=== PATIENT | female | born 1945 | race Asian ===

== ENCOUNTER 2018-10-18 08:01 | Inpatient (IN) ==
--- NOTE | 2018-10-06 13:22 | Anesthesiology Consultation ---
Date of Service October 06, 2018 Assessment & Plan (1) Encounter for pre-operative examination: Chart Review Chart Review: Acceptable Risk for Surgery and Patient NOT seen in Pre Admission Testing History Surgery Operation Date: 10/18/18 10:10 Proposed Procedures p Laparoscopic Assisted Partial Colon Resection - Yash Peralta MD Height/Weight Height: 5 ft 4 in Weight: 58.967 kg Allergies Allergy/AdvReac Type Severity Reaction Status Date / Time No Known Allergies Allergy Verified 10/06/18 11:40 Medications Home Medications Medication Instructions Recorded Confirmed Last Taken calcium carbonate-vitamin D3 1 tab PO QAM 10/06/18 10/06/18 Unknown [Calcium 500 + D] cholecalciferol (vitamin D3) 5,000 unit PO QAM 10/06/18 10/06/18 Unknown [Vitamin D3] glimepiride 4 mg PO BID 10/06/18 10/06/18 Unknown hydrocodone-acetaminophen 1 tab PO Q6H PRN 10/06/18 10/06/18 Unknown insulin glargine [Lantus U-100 8 unit SUBCUT QAM 10/06/18 10/06/18 Unknown Insulin] insulin glargine [Lantus U-100 18 unit SUBCUT 10/06/18 10/06/18 Unknown Insulin] lisinopril 40 mg PO QAM 10/06/18 10/06/18 Unknown metformin 1,000 mg PO BID 10/06/18 10/06/18 Unknown rosuvastatin [Crestor] 40 mg PO QPM 10/06/18 10/06/18 Unknown Past Medical History Medical History Colon polyp CURRENT ISSUE Diabetes mellitus, type 2 IDDM History of diverticulitis Hyperlipidemia Hypertension Osteoarthritis Rheumatoid arthritis Past Surgical History Surgical History History of esophagogastroduodenoscopy (EGD) Hx of appendectomy Hx of colonoscopy Hx of tubal ligation Social History Smoking Status: Current every day smoker tobacco type: cigarettes Smoking cigarettes per day: 5-10 CIGARETTES/DAY Hx Alcohol Use: Yes Alcohol type: beer, wine and hard liquor alcohol intake frequency: a few times a month Hx Substance Use: No Testing Laboratory Results 09/29/18 WBC 11.61 (surgeon aware) H/H 14.4/42.3 PLATELETS 375 SODIUM 141 POTASSIUM 4.7 CHLORIDE 105 CO2 22 BUN 16 CREATININE 0.7 GLUCOSE 124 Electrocardiogram Date: 09/29/18 SR with PSVC's at 96bpm. Otherwise "normal" EKG
[~2018-10-18 08:01] MED LIST: LR 15ML/HR IV SCH; cefOXitin 2,000 MG in DEXTROSE 5% 50 ML IV SCH
[2018-10-18] MEDS ORDERED: ePHEDrine sulfate 50 MG/ML AMP IV PRN (11:33)
[2018-10-18] MEDS ORDERED: HYDROmorphone INJ 2 MG/ML SYR/VIAL IV PRN (11:33)
[2018-10-18] MEDS ORDERED: PROMETHAZINE HCL 6.25 MG in SODIUM CHLORIDE 0.9% 50 ML IV PRN (11:33)
[2018-10-18] MEDS ORDERED: ONDANSETRON INJ 2 MG/ML 2 ML VIAL IV PRN ×2 (11:33→18:56)
[2018-10-18] MEDS ORDERED: ATROPINE SULFATE 0.1 MG/ML 10ML SYR IV PRN (11:33)
[2018-10-18] MEDS ORDERED: LIDOCAINE HCL 2% 2 ML VIAL/AMP(20MG/ML) INFIL ONE (11:34)
[2018-10-18] MEDS ORDERED: DEXAMETHASONE SOD INJ 4 MG/ML VIAL ONE (11:34)
[2018-10-18] MEDS ORDERED: ROCURONIUM BROMIDE 10 MG/ML 5 ML VIAL ONE (11:34)
[2018-10-18] MEDS ORDERED: MIDAZOLAM HCL 1 MG/ML 2ML VIAL ONE (11:34)
[2018-10-18] MEDS ORDERED: fentaNYL citrate 100 MCG/2 ML VIAL ONE ×6 (11:34→17:55)
[2018-10-18] MEDS ORDERED: PROPOFOL IV EMULSION 10 MG/ML 20 ML VIAL IV ONE (11:34)
[2018-10-18] MEDS ORDERED: ONDANSETRON INJ 2 MG/ML 2 ML VIAL ONE (11:34)
--- NOTE | 2018-10-18 12:02 | History & Physical Bridge Note ---
Date of Service October 18, 2018 History & Physical Bridge Note I have examined the patient, reviewed the History & Physical and in the interval since the performance of the History & Physical I have noted the following changes of clinical significance: no changes noted
[2018-10-18] MEDS ORDERED: BUPIVACAINE 0.5 % 5 MG/1 ML MPF 30ML VIAL ONE (13:03)
[2018-10-18] MEDS ORDERED: PHENYLEPHRINE 100MCG/ML 5ML SYR ONE (17:01)
[2018-10-18] MEDS ORDERED: NEOSTIGMINE METHYLSULFATE 5 MG/5 ML SYR ONE (17:13)
[2018-10-18] MEDS ORDERED: GLYCOPYRROLATE 0.2 MG/ML VIAL ONE (17:13)
--- NOTE | 2018-10-18 17:37 | Post Operative Brief Note ---
Immediate Post Op Note v1 Date of Surgery October 18, 2018 Pre & Post Diagnosis Operation Date: 10/18/18 10:20 Pre-Op Diagnosis: Villous Adenoma Post-Op Diagnosis: Villous Adenoma Procedure Operation Date: 10/18/18 10:20 Actual Procedures p Attempted laparoscopic assisted partial colon resection, lysis of adhesion, right hemicolectomy, proximal transverse colon resection(Not Applicable) - Yash Peralta MD Surgeon Yash Peralta MD Vascular Technologist Sonographer Valerie Miguel PA-C Estimated Blood Loss 350 Findings Consistent with Post-Op Diagnosis Specimens Right and proximal transverse colon Drains Arboleda Catheter (16f arboleda catheter inserted by JURGEN Bro, sterile technique maintained, remains intact per surgeon order) Anesthesia Type General Complications none
[2018-10-18] MEDS: fentaNYL citrate 100 MCG/2 ML VIAL IV PRN ×3 (17:50→18:00)
--- NOTE | 2018-10-18 18:24 | Anesthesiology Progress Note ---
Date of Service October 18, 2018 Anesthesia Post Procedure Vital Signs Vital Signs: Temp Pulse Resp BP Pulse Ox 10/18/18 18:15 101 H 12 141/91 H 99 10/18/18 18:05 102 H 12 125/86 99 10/18/18 17:55 104 H 19 157/75 H 100 10/18/18 17:45 36.5 C 100 H 11 L 135/83 100 10/18/18 08:39 36.6 C 69 18 138/80 99 Pain Intensity Medial Abdomen: Pain Intensity: 4 Transfer of Care Handoff Completed per policy Notes Mental Status: alert / awake / arousable and participated in evaluation Patient Amnestic to Procedure: Yes Nausea / Vomiting: adequately controlled Pain: adequately controlled Airway Patency, RR, SpO2: stable & adequate BP & HR: stable & adequate Hydration State: stable & adequate Anesthetic Complications: no major complications apparent
[2018-10-18] MEDS ORDERED: NALOXONE HCL 0.4 MG/1 ML VIAL/CARP IV PRN (18:56)
[2018-10-18] MEDS ORDERED: HYDROmorphone HCL 0.5MG/ML 50 ML CASSETTE IV PRN (18:56)
[2018-10-18] MEDS: ONDANSETRON INJ 2 MG/ML 2 ML VIAL IV PRN (19:08)
[2018-10-18 19:49] LABS: INR 1.1 (0.9-1.1); Partial Thromboplastin Ratio 0.8; Partial Thromboplastin Time 22.5 Seconds (21.0-31.0); Prothrombin Time 11.4 Seconds (9.0-12.0)
[2018-10-18] MEDS ORDERED: PHARMACY GLYCEMIC MGMT CONSULT PRN (19:51)
[2018-10-18] MEDS ORDERED: ENOXAPARIN INJ 30 MG/0.3 ML SYR SQ SCH (20:00)
[2018-10-18 20:07] LABS: Hematocrit (blood only) 32.3 % (37-47); Hemoglobin 11.1 g/dL (12.0-16.0); Mean Corpuscular Hgb Conc 34.4 g/dL (32-36); Mean Corpuscular Volume 84.8 fL (80-100); Mean Platelet Volume 8.9 fL (7.4-10.4); Platelet Count 507 K/uL (130-400); RDW Coefficient of Variation 13.2 % (11.5-14.5); RDW Standard Deviation 40.5 fL (36.4-46.3); Red Blood Count 3.81 M/uL (4.2-5.4); White Blood Count 29.56 K/uL (4.8-10.8)
[2018-10-18] MEDS: SODIUM CHLORIDE 0.9% 1000ML 1,000 ML IV SCH ×2 (20:14→20:28)
[2018-10-18] MEDS ORDERED: DEXTROSE 50% 50 ML SYRINGE IV PRN (20:15)
[2018-10-18] MEDS ORDERED: GLUCAGON FOR INJ 1 MG VIAL IM PRN (20:15)
[2018-10-18] MEDS ORDERED: GLUCOSE 40% GEL 15 GM TUBE PO PRN (20:15)
[2018-10-18] MEDS ORDERED: GLUCOSE 10 TABS/TUBE PO PRN (20:15)
[2018-10-18] MEDS ORDERED: CARBOHYDRATES FOR HYPOGLYCEMIA PO PRN (20:15)
[2018-10-18 20:17] LABS: BUN Creatinine Ratio 18.3 (10-20); Calcium 8.4 mg/dl (8.5-10.1); Creatinine Clr Calc Pharmacy 44.4 ml/min; Est GFR (Non-African American) 56.9; Potassium 3.8 mmol/L (3.5-5.1)
[2018-10-18 20:18] LABS: Creatinine Clr Calc Pharmacy 43.1 ml/min; Est GFR (African American) 63.6; Est GFR (Non-African American) 54.9
[2018-10-18] MEDS: ALUMINUM/MAGNESIUM SUSP 30 ML UDC NG SCH (20:19)
[2018-10-18] MEDS ORDERED: INSULIN GLARGINE SOLOSTAR 100 UNITS/ML 3 ML PEN SC SCH (21:00)
[2018-10-19] MEDS: INSULIN ASPART 100 UNITS/ML 3 ML PEN SC SCH ×4 (00:05→18:42)
[2018-10-19] MEDS: ALUMINUM/MAGNESIUM SUSP 30 ML UDC NG SCH ×4 (00:09→18:43)
--- NOTE | 2018-10-19 01:44 | Operative Report ---
DATE OF OPERATION: 10/18/2018 PREOPERATIVE DIAGNOSIS: Tubulovillous adenoma of the colon. POSTOPERATIVE DIAGNOSIS: Tubulovillous adenoma of the hepatic flexure of the colon. PROCEDURE: Laparoscopic assisted right and proximal transverse colectomy. SURGEON: Yash Peralta MD CAD DRAFTSMAN: Valerie Miguel PA-C FINDINGS: Area of the adenoma was inked and this was found to be at the hepatic flexure. The remainder of the colon appeared normal. Initially, it was felt that it may have been at the splenic flexure and so the colon was followed beginning at the mid transverse colon laterally and then around the splenic flexure and into the descending colon and there was no inking there. There was ink; however, that was obvious upon entering the abdomen in the area of the hepatic flexure. The patient had had a previous appendectomy. The cecum was densely adherent to the lateral abdominal wall in the right lower quadrant was the terminal ileum which was densely adherent there and going inferiorly towards the pelvis. Laparoscopic dissection was quite difficult in visualization of the wall of the bowel was very difficult and so after mobilizing the distal ascending colon and transverse colon, I had to make an incision a little bit bigger than normal in order to manually divide the adhesions of the cecum and terminal ileum away from the lateral abdominal and pelvic wall. The transverse colon was also redundant and the omentum was also adherent in the right lower quadrant which tethered the redundant transverse colon to the site over the cecum. This required significant dissection in order to identify that. TECHNIQUE: The patient was given a general anesthetic and the area was prepped and draped in usual sterile fashion. A transverse incision was made below the umbilicus through her previous scar, carried down to the subcutaneous tissue to the fascia which was grasped with 2 Kay clamps and incised between. The peritoneum was identified, incised and introducer was placed bluntly. The abdomen was insufflated to a pressure of 15 mmHg and the camera was passed through that introducer. The inking in the right upper quadrant was easily identified so two 5 mm introducers were placed on the left side of the abdomen under direct vision. Eventually, a 5 mm introducer was placed under the right side of the abdomen in the lower quadrant as well. I was able to see the inking of the hepatic flexure and I could see the transverse colon in the left side of the abdomen and I followed that out towards the splenic flexure and then I looked at the descending colon. There was no ink on that side so then I followed the transverse colon towards the right and noted that it was extending down towards the right lower quadrant. It was clear that the omentum was thickened and adherent to the lateral and inferior abdominal wall. These adhesions had to be divided so that I could then retract the omentum up into the upper abdomen and identify the mid portion of the transverse colon. I then began at the mid portion of the transverse colon and the omentum and established the plane along the superior aspect of the mesentery working from medial to lateral. I then began to work around the hepatic flexure and identified the inked area and placed downward traction and divided the flimsy mesenteric attachments and the white line of Toldt and worked inferiorly; however, when I got into the right lower quadrant, the cecum was densely adherent to the lateral abdominal wall. I was able to establish a plane and then I was able to rotate that medially, but I was not able to get behind the cecum. I then tried to come from the lateral and I tried to identify the terminal ileum and when I did it, it was densely adherent to the lateral pelvic side wall that extended up over into the lateral abdominal wall. I divided some of those attachments, but it became difficult to tell where the bowel wall and the peritoneum ended since it was so thickened. At that point, I decided to complete the procedure with a more open technique. The gas was allowed to escape and a vertical midline incision was made from above the umbilicus and worked down around the umbilicus to include the previous midline incision. The layers were opened in the midline as was the fascia and the peritoneum was opened and the layers were opened along the length of the skin incision. I then was able to grasp the ascending colon and retracted medially. I was able to use my hand with some blunt dissection, but also required some cautery dissection to separate the thickened adhesions of the cecum. Once I rolled back medially, I then was able to get behind that and behind the dense attachments of the terminal ileum on the lateral abdominal wall, lateral pelvic wall and divide those and then I was able to reflect that medially and separate the attachments of the mesentery and had completely freed. That allowed the terminal ileum to come into the upper abdomen and I made sure that I could perform an anastomosis without tension. The site of the terminal ileum was chosen for division. The mesentery was away from the wall of the terminal ileum there and the terminal ileum was divided. I then could feel the middle colic artery. I then was able to separate the mesentery away from the colon wall just to the right of the middle colic artery. This was a good distance away from the inked area to assure for a good margin should there have been carcinoma within the polyp. I then divided the mesentery working from the terminal ileum side up and divided that using cautery and using a clamp-clamp, divide and ligate technique for the larger vessels including the right colic. These were ligated with a 2-0 Vicryl tie and a 2-0 suture ligature. When the mesentery was completely divided, the specimen was passed off. The small bowel brought at the level of the transverse colon without tension. The mesenteric opening was closed partially using a running 2-0 Vicryl. The anastomosis was then performed making sure not to twist the mesentery of the small bowel. The small bowel wall was approximated to the wall of the colon using 3-0 interrupted stay sutures The antimesenteric border of each staple line was removed and the limb of the stapler was passed into each limb and the anastomosis was performed. There was no bleeding from the staple line. The common opening was closed with a TA stapler being sure to incorporate the serosa around the entire circumference. Another 3-0 stitch was placed near the crotch of the anastomosis distally. Additional stay sutures were used to reinforce the staple line anteriorly. The remainder of the opening in the mesentery was closed with an additional running 2-0 Vicryl. The anastomosis was placed back into its anatomic position. The omentum was brought down over it. There was an extension of the omentum, but I was concerned about the vascularity and so this was removed using a clamp-clamp, divide and ligate technique ligating with 2-0 silk sutures. The omentum was brought over the anastomosis and anterior wall of the small bowel. Prior to doing that, the abdomen was irrigated and irrigation was removed and the areas of dissection were inspected for bleeding and none was seen. The fascia was closed with a running #1 PDS. The skin was closed with hoa. Estimated blood loss 350 mL. Sponge, needle and instrument counts were correct prior to closure. The patient tolerated the surgical procedure without complication and was transferred to recovery. I attest to the content of the Intraoperative Record and any orders documented therein. Any exception s are noted below.
[2018-10-19] MEDS: SODIUM CHLORIDE 0.9% 1000ML 1,000 ML IV SCH ×4 (03:51→20:05)
[2018-10-19 07:33] LABS: Basophils # (auto) 0.01 K/uL (0-0.2); Hematocrit (blood only) 29.4 % (37-47); Immature Granulocytes % (auto) 0.4 %; Lymphocytes # (auto) 1.32 K/uL (1.2-3.4); Lymphocytes % (auto) 5.8 %; Mean Platelet Volume 8.6 fL (7.4-10.4); Monocytes # (auto) 1.67 K/uL (0.11-0.59); Monocytes % (auto) 7.3 %; Neutrophils # (auto) 19.79 K/uL (1.4-6.5); Neutrophils % (auto) 86.5 %; Platelet Count 430 K/uL (130-400); RDW Coefficient of Variation 13.2 % (11.5-14.5); RDW Standard Deviation 40.2 fL (36.4-46.3); Red Blood Count 3.46 M/uL (4.2-5.4); White Blood Count 22.89 K/uL (4.8-10.8)
[2018-10-19 08:06] LABS: BUN Creatinine Ratio 27.9 (10-20); Calcium 8.4 mg/dl (8.5-10.1); Creatinine Clr Calc Pharmacy 49.3 ml/min; Est GFR (Non-African American) 64.7
--- NOTE | 2018-10-19 08:21 | Surgery Progress Note ---
Date of Service October 19, 2018 Assessment & Plan (1) Tubulovillous adenoma of colon: Postoperative day #1 status post resection of right colon and proximal transverse colon Stable Can discontinue NG tube Would continue with ice chips for now Encouraged ambulation Present on Admission?: Yes Subjective Postoperative day #1, status post resection of right colon and proximal transverse colon Analgesia is effective Denies nausea and vomiting Has already been out of bed No flatus or bowel movement as yet Physical Exam Gastrointestinal (Abdomen): Inspection/Auscultation: + abdominal surgical incision (Dressings are clean and dry) and + hypoactive bowel sounds (But prese nt); abdomen not distended Percussion/Palpation: + abdomen tender (Incisional only) and abdomen soft Results & Data Vital Signs (Past 12 Hours) Vital Signs Temp Pulse Pulse Resp BP BP Pulse Ox 10/19/18 07:06 37 C 91 H 16 137/72 94 10/19/18 03:17 36.8 C 92 H 16 127/76 94 10/19/18 00:50 36.6 C 93 H 16 117/74 94 10/18/18 23:48 36.4 C L 100 H 16 117/76 96 10/18/18 22:50 36.7 C 100 H 14 115/72 93 10/18/18 21:54 36.7 C 100 H 14 114/77 94 10/18/18 21:28 36.8 C 100 H 16 119/78 95 10/18/18 20:50 36.9 C 104 H 16 114/77 95 10/18/18 20:30 37.0 C 104 H 17 114/78 94 Laboratory Results 10/19/18 10/19/18 10/19/18 Range/Units 07:15 07:15 07:15 WBC 22.89 H (4.8-10.8) K/uL RBC 3.46 L (4.2-5.4) M/uL Hgb 10.0 L (12.0-16.0) g/dL Hct 29.4 L (37-47) % MCV 85.0 (80-100) fL MCH 28.9 (25-34) pg MCHC 34.0 (32-36) g/dL RDW Std Deviation 40.2 (36.4-46.3) fL RDW Coeff of Yoav 13.2 (11.5-14.5) % Plt Count 430 H (130-400) K/uL MPV 8.6 (7.4-10.4) fL Immature Gran % (Auto) 0.4 % Neut % (Auto) 86.5 % Lymph % (Auto) 5.8 % Jessamine % (Auto) 7.3 % Eos % (Auto) 0.0 % Baso % (Auto) 0.0 % Immature Gran # (Auto) 0.10 H (0.00-0.02) K/uL Neut # (Auto) 19.79 H (1.4-6.5) K/uL Lymph # (Auto) 1.32 (1.2-3.4) K/uL Jessamine # (Auto) 1.67 H (0.11-0.59) K/uL Eos # (Auto) 0.00 (0-0.5) K/uL Baso # (Auto) 0.01 (0-0.2) K/uL PT (9.0-12.0) Seconds INR (0.9-1.1) APTT (21.0-31.0) Seconds PTT Ratio Sodium 137 (136-145) mmol/L Potassium 4.0 (3.5-5.1) mmol/L Chloride 107 (98-107) mmol/L Carbon Dioxide 19 L (21-32) mmol/L Anion Gap 11.0 (3-11) BUN 25 H (7-18) mg/dl Creatinine 0.89 (0.6-1.2) mg/dl Est Cr Clr Drug Dosing 49.3 ml/min Est GFR ( Amer) 75.0 Est GFR (Non-Af Amer) 64.7 BUN/Creatinine Ratio 27.9 H (10-20) Glucose 225 H (70-99) mg/dl POC Glucose (70-99) Estimat Average Glucose Pending Hemoglobin A1c Pending Calcium 8.4 L (8.5-10.1) mg/dl Blood Type Antibody Screen 10/19/18 10/18/18 10/18/18 Range/Units 05:33 23:53 21:59 WBC (4.8-10.8) K/uL RBC (4.2-5.4) M/uL Hgb (12.0-16.0) g/dL Hct (37-47) % MCV (80-100) fL MCH (25-34) pg MCHC (32-36) g/dL RDW Std Deviation (36.4-46.3) fL RDW Coeff of Yoav (11.5-14.5) % Plt Count (130-400) K/uL MPV (7.4-10.4) fL Immature Gran % (Auto) % Neut % (Auto) % Lymph % (Auto) % Jessamine % (Auto) % Eos % (Auto) % Baso % (Auto) % Immature Gran # (Auto) (0.00-0.02) K/uL Neut # (Auto) (1.4-6.5) K/uL Lymph # (Auto) (1.2-3.4) K/uL Jessamine # (Auto) (0.11-0.59) K/uL Eos # (Auto) (0-0.5) K/uL Baso # (Auto) (0-0.2) K/uL PT (9.0-12.0) Seconds INR (0.9-1.1) APTT (21.0-31.0) Seconds PTT Ratio Sodium (136-145) mmol/L Potassium (3.5-5.1) mmol/L Chloride (98-107) mmol/L Carbon Dioxide (21-32) mmol/L Anion Gap (3-11) BUN (7-18) mg/dl Creatinine (0.6-1.2) mg/dl Est Cr Clr Drug Dosing ml/min Est GFR ( Amer) Est GFR (Non-Af Amer) BUN/Creatinine Ratio (10-20) Glucose (70-99) mg/dl POC Glucose 235 H 233 H 207 H (70-99) Estimat Average Glucose Hemoglobin A1c Calcium (8.5-10.1) mg/dl Blood Type Antibody Screen 10/18/18 10/18/18 10/18/18 Range/Units 19:24 19:24 19:24 WBC 29.56 H (4.8-10.8) K/uL RBC 3.81 L (4.2-5.4) M/uL Hgb 11.1 L (12.0-16.0) g/dL Hct 32.3 L (37-47) % MCV 84.8 (80-100) fL MCH 29.1 (25-34) pg MCHC 34.4 (32-36) g/dL RDW Std Deviation 40.5 (36.4-46.3) fL RDW Coeff of Yoav 13.2 (11.5-14.5) % Plt Count 507 H (130-400) K/uL MPV 8.9 (7.4-10.4) fL Immature Gran % (Auto) % Neut % (Auto) % Lymph % (Auto) % Jessamine % (Auto) % Eos % (Auto) % Baso % (Auto) % Immature Gran # (Auto) (0.00-0.02) K/uL Neut # (Auto) (1.4-6.5) K/uL Lymph # (Auto) (1.2-3.4) K/uL Jessamine # (Auto) (0.11-0.59) K/uL Eos # (Auto) (0-0.5) K/uL Baso # (Auto) (0-0.2) K/uL PT 11.4 (9.0-12.0) Seconds INR 1.1 (0.9-1.1) APTT 22.5 (21.0-31.0) Seconds PTT Ratio 0.8 Sodium (136-145) mmol/L Potassium (3.5-5.1) mmol/L Chloride (98-107) mmol/L Carbon Dioxide (21-32) mmol/L Anion Gap (3-11) BUN (7-18) mg/dl Creatinine 1.02 (0.6-1.2) mg/dl Est Cr Clr Drug Dosing 43.1 ml/min Est GFR ( Amer) 63.6 Est GFR (Non-Af Amer) 54.9 BUN/Creatinine Ratio (10-20) Glucose (70-99) mg/dl POC Glucose (70-99) Estimat Average Glucose Hemoglobin A1c Calcium (8.5-10.1) mg/dl Blood Type Antibody Screen 10/18/18 10/18/18 10/18/18 Range/Units 19:21 17:47 13:59 WBC (4.8-10.8) K/uL RBC (4.2-5.4) M/uL Hgb (12.0-16.0) g/dL Hct (37-47) % MCV (80-100) fL MCH (25-34) pg MCHC (32-36) g/dL RDW Std Deviation (36.4-46.3) fL RDW Coeff of Yoav (11.5-14.5) % Plt Count (130-400) K/uL MPV (7.4-10.4) fL Immature Gran % (Auto) % Neut % (Auto) % Lymph % (Auto) % Jessamine % (Auto) % Eos % (Auto) % Baso % (Auto) % Immature Gran # (Auto) (0.00-0.02) K/uL Neut # (Auto) (1.4-6.5) K/uL Lymph # (Auto) (1.2-3.4) K/uL Jessamine # (Auto) (0.11-0.59) K/uL Eos # (Auto) (0-0.5) K/uL Baso # (Auto) (0-0.2) K/uL PT (9.0-12.0) Seconds INR (0.9-1.1) APTT (21.0-31.0) Seconds PTT Ratio Sodium 137 (136-145) mmol/L Potassium 3.8 (3.5-5.1) mmol/L Chloride 105 (98-107) mmol/L Carbon Dioxide 19 L (21-32) mmol/L Anion Gap 13.0 H (3-11) BUN 18 (7-18) mg/dl Creatinine 0.99 (0.6-1.2) mg/dl Est Cr Clr Drug Dosing 44.4 ml/min Est GFR ( Amer) 66.0 Est GFR (Non-Af Amer) 56.9 BUN/Creatinine Ratio 18.3 (10-20) Glucose 162 H (70-99) mg/dl POC Glucose 144 H 79 (70-99) Estimat Average Glucose Hemoglobin A1c Calcium 8.4 L (8.5-10.1) mg/dl Blood Type Antibody Screen 10/18/18 10/18/18 Range/Units 09:02 08:40 WBC (4.8-10.8) K/uL RBC (4.2-5.4) M/uL Hgb (12.0-16.0) g/dL Hct (37-47) % MCV (80-100) fL MCH (25-34) pg MCHC (32-36) g/dL RDW Std Deviation (36.4-46.3) fL RDW Coeff of Yoav (11.5-14.5) % Plt Count (130-400) K/uL MPV (7.4-10.4) fL Immature Gran % (Auto) % Neut % (Auto) % Lymph % (Auto) % Jessamine % (Auto) % Eos % (Auto) % Baso % (Auto) % Immature Gran # (Auto) (0.00-0.02) K/uL Neut # (Auto) (1.4-6.5) K/uL Lymph # (Auto) (1.2-3.4) K/uL Jessamine # (Auto) (0.11-0.59) K/uL Eos # (Auto) (0-0.5) K/uL Baso # (Auto) (0-0.2) K/uL PT (9.0-12.0) Seconds INR (0.9-1.1) APTT (21.0-31.0) Seconds PTT Ratio Sodium (136-145) mmol/L Potassium (3.5-5.1) mmol/L Chloride (98-107) mmol/L Carbon Dioxide (21-32) mmol/L Anion Gap (3-11) BUN (7-18) mg/dl Creatinine (0.6-1.2) mg/dl Est Cr Clr Drug Dosing ml/min Est GFR ( Amer) Est GFR (Non-Af Amer) BUN/Creatinine Ratio (10-20) Glucose (70-99) mg/dl POC Glucose 79 (70-99) Estimat Average Glucose Hemoglobin A1c Calcium (8.5-10.1) mg/dl Blood Type A Positive Antibody Screen NEGATIVE
[2018-10-19] MEDS ORDERED: INSULIN GLARGINE SOLOSTAR 100 UNITS/ML 3 ML PEN SC ONE ×2 (09:00)
--- NOTE | 2018-10-19 09:26 | Anesthesiology Progress Note ---
Date of Service October 19, 2018 Anesthesia Post Procedure Vital Signs Vital Signs: Temp Pulse Pulse Resp BP BP Pulse Ox 10/19/18 07:06 37 C 91 H 16 137/72 94 10/19/18 03:17 36.8 C 92 H 16 127/76 94 10/19/18 00:50 36.6 C 93 H 16 117/74 94 10/18/18 23:48 36.4 C L 100 H 16 117/76 96 10/18/18 22:50 36.7 C 100 H 14 115/72 93 10/18/18 21:54 36.7 C 100 H 14 114/77 94 10/18/18 21:28 36.8 C 100 H 16 119/78 95 10/18/18 20:50 36.9 C 104 H 16 114/77 95 10/18/18 20:30 37.0 C 104 H 17 114/78 94 10/18/18 19:50 36.8 C 107 H 16 101/70 95 10/18/18 19:20 36.9 C 105 H 16 128/78 95 10/18/18 18:58 36.7 C 106 H 17 148/88 H 94 10/18/18 18:45 36.6 C 108 H 16 142/84 H 96 10/18/18 18:35 36.6 C 108 H 16 123/84 96 10/18/18 18:25 110 H 12 143/91 H 99 10/18/18 18:15 101 H 12 141/91 H 99 10/18/18 18:05 102 H 12 125/86 99 10/18/18 17:55 104 H 19 157/75 H 100 10/18/18 17:45 36.5 C 100 H 11 L 135/83 100 Pain Intensity Medial Abdomen: Pain Intensity: 3 Notes Mental Status: alert / awake / arousable Patient Amnestic to Procedure: Yes Nausea / Vomiting: adequately controlled Pain: adequately controlled Airway Patency, RR, SpO2: stable & adequate BP & HR: stable & adequate Hydration State: stable & adequate Anesthetic Complications: no major complications apparent
[2018-10-19 09:47] LABS: Estimated Average Glucose 171 mg/dl; Hemoglobin A1C 7.6 % (4.5-5.6)
--- NOTE | 2018-10-19 10:43 | Pharmacy Report ---
Glycemic Control Consultation - Date of Service October 19, 2018 - Scope Scope: Glycemic Pharmacist consulted by Dr Peralta on 10-18 for glycemic control and to write orders per [facility] inpatient glycemic control protocol - Objective Weight: 56.699 kg Accuchecks BSG (last 24hrs): 10/18/18 10/18/18 10/18/18 13:59 17:47 19:21 Glucose 162 H POC Glucose 79 144 H 10/18/18 10/18/18 10/19/18 21:59 23:53 05:33 Glucose POC Glucose 207 H 233 H 235 H 10/19/18 07:15 Glucose 225 H POC Glucose Laboratory Data (last 24hrs): 10/18/18 10/18/18 10/19/18 19:21 19:24 07:15 Potassium 3.8 4.0 Carbon Dioxide 19 L 19 L Anion Gap 13.0 H 11.0 Creatinine 0.99 1.02 0.89 Est Cr Clr Drug Dosing 44.4 43.1 49.3 HbA1c: Hemoglobin A1c 7.6 % (4.5-5.6) H 10/19/18 07:15 - Recent Pertinent Medications Outpatient Anti-diabetic Regimen: * Lantus 8 units QAM, Lantus 18 units QPM, metformin 1000 mg bid, glimepiride 4 mg bid * A1c = 7.6 % [10/19/18] Risk Factors for Insulin Resistance: * Steroids: received dex 4 mg iv 10/18 in OR * Recent Surgery: POD 1 * Diet: NPO/ice chips - Assessment & Plan Assessment & Plan: ASSESSMENT: * 73 year old female now s/p colon resection. Today POD 1 - continues NPO/ice chips * Patient received total of ~18 units of insulin yesterday, of which 14 units were basal ( only ~50% of home dose of basal given) * Fasting BSG this morning elevated at 235 mg/dL - likely related to steroids/insufficient basal coverage day prior * Will increase to Lantus 12 units this am (which is an additional 4 units more from home dose to make up basal dosing from yesterday and to help cover steroids). Will add Lantus scale on for this evening based upon BSG * Patient on Q6 hr checks / already covered with Novolog this morning, however will further tighten for lunchtime check PLAN FOR INPATIENT GLYCEMIC CONTROL: * Pt is maintained on oral antidiabetic agents as an outpatient * Oral agents are not recommended for inpatient use d/t drug interactions, changing PO intake, and difficulty titrating for acute hyper/hypoglycemia. ADA recommends re-initiating outpatient oral agents 1-2 days prior to discharge if/when appropriate if they were held on admission. * Will hold oral agents for admission and utilize SQ basal bolus insulin regimen which is the recommended regimen for inpatient glycemic control. * Will initiate weight based insulin dosing for insulin buzz patient and titrate based on BSG trends. * Basal insulin * Lantus 12 units this morning * Lantus HS per scale -For BSG <140 mg/dL - give 8 units -For BSG 140-200 mg/dL - give 10 units -For BSG >200 mg/dL - give 12 units * Bolus insulin * NovoLog per scale ACHS or Q6hrs while NPO * Goal Range: Low 110 mg/dL - High 140 mg/dL * Correction Factor: 20 mg/dL/unit * Nutritional / Prandial insulin per carb ratio of 1 unit per 12 grams CHO consumed * Please note that the plan above was derived based on current level of insulin resistance and hospital stress. These recommendations are appropriate for inpatient admission only. Plan of care upon discharge will need to be reassessed to avoid potential outpatient hypo/hyperglycemia. Thank you.
[2018-10-19] MEDS ORDERED: INSULIN GLARGINE SOLOSTAR 100 UNITS/ML 3 ML PEN SC SCH ×2 (18:00)
[2018-10-19] MEDS ORDERED: ENOXAPARIN INJ 30 MG/0.3 ML SYR SQ SCH (18:15)
[2018-10-20] MEDS ORDERED: INSULIN ASPART 100 UNITS/ML 3 ML PEN SC SCH (00:05)
[2018-10-20] MEDS: ALUMINUM/MAGNESIUM SUSP 30 ML UDC NG SCH ×3 (00:20→12:57)
[2018-10-20] MEDS: INSULIN ASPART 100 UNITS/ML 3 ML PEN SC SCH ×5 (01:06→21:31)
--- NOTE | 2018-10-20 01:29 | History and Physical Report ---
DATE OF ADMISSION: 10/20/2018 CHIEF COMPLAINT: Status post right and proximal transverse colectomy on 10/18/2018. We are consulted for low urine output. HISTORY OF PRESENT ILLNESS: This is a 73-year-old female with past medical history significant for diabetes, hyperlipidemia, hypertension, gastroesophageal reflux disease, chronic pain, rheumatoid arthritis, recently colonoscopy showed tubulovillous adenoma of the hepatic flexure, status post elective laparoscopic right colon and transverse colectomy, tolerated the procedure okay. The patient has had a nasogastric tube, eventually was taken out and also had Faust that was taken out. We are called because she had only 200 mL of urine output. On bladder scanning, she has about 380 mL of urine in the bladder. Denies any abdominal pain. No nausea. No chest pain. No shortness of breath. No cough. No feeling of hot or cold. She has some blurry vision, afebrile, moving her extremities, not passing gas yet, has some soreness in the surgical site. ALLERGIES: No known drug allergies. PAST MEDICAL HISTORY: As mentioned above. PAST SURGICAL HISTORY: Status post right colectomy and transverse colectomy, colonoscopy, ligation of oviduct and appendectomy. MEDICATIONS: The patient is on Cymbalta 30 mg, calcium with vitamin D daily, glimepiride 4 mg p.o. b.i.d., hydrocodone/acetaminophen one tablet p.o. q. 6 hours p.r.n., Lantus 18 units at bedtime and 8 units in a.m., lisinopril 20 mg p.o. daily, metformin 1000 mg p.o. b.i.d. and Crestor 40 mg p.o. daily. FAMILY HISTORY: On file. SOCIAL HISTORY: Smokes half pack a day. Alcohol occasional. No drug use. . REVIEW OF SYMPTOMS: As per HPI. Rest of review of systems negative. PHYSICAL EXAMINATION: GENERAL: The patient is of moderate build, not in acute distress. VITAL SIGNS: Temperature 36.8, pulse 77, respiratory rate 18, blood pressure 132/71 and oxygen 96% on room air. HEENT: No pallor. No icterus. NECK: No JVD. No neck masses. No carotid bruits. CARDIOVASCULAR: S1, S2 heard. Regular rate and rhythm. No murmur. No gallop. RESPIRATORY SYSTEM: Normal AP diameter. No accessory muscle use. No wheezing. No crackles. ABDOMEN: Surgical dressing clean. No drainage seen. Very diminished bowel sounds. No distention. CENTRAL NERVOUS SYSTEM: Nonfocal. EXTREMITIES: No edema. No erythema. LABORATORY DATA: Yesterday's WBC 22, hemoglobin 10, hematocrit 29.4 and platelets 430. Sodium 137, potassium 4, chloride 107, bicarbonate 19, BUN 25, creatinine 0.8, serum glucose 225, calcium 8.7 and HbA1c 7.6. ASSESSMENT AND PLAN: This is a 73-year-old female who was found to have tubulovillous adenoma on a recent colonoscopy and status post right and transverse colectomy. 1. Tubulovillous adenoma, status post laparoscopic assisted right and proximal transverse colectomy, tolerated procedure okay, currently n.p.o. and on I.V. fluids. 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 Further management as per surgery. 2. Urinary retention, about 380 mL of fluid in the bladder, mostly postoperative, we will straight catheterize for now. If continues to have retention retention, we will place back on Faust catheter. 3. Diabetes. At home on metformin, glyburide and Lantus 8 units in a.m. and 18 units at bedtime, holding glimepiride and metformin, currently n.p.o. on ISS. Pharmacy consulted. 4. History of hypertension, If the blood pressure climbs up, we will place on I.V. hydralazine and restart lisinopril whenever able to take p.o. 5. Hyperlipidemia, restart Crestor whenever able to take p.o. 6. Deep venous thrombosis prophylaxis and disposition as per surgery. [facility]
[2018-10-20] MEDS: SODIUM CHLORIDE 0.9% 1000ML 1,000 ML IV SCH ×3 (03:56→17:23)
[2018-10-20] MEDS: ONDANSETRON INJ 2 MG/ML 2 ML VIAL IV PRN (05:39)
[2018-10-20 06:18] LABS: Basophils # (auto) 0.01 K/uL (0-0.2); Basophils % (auto) 0.1 %; Eosinophils # (auto) 0.01 K/uL (0-0.5); Eosinophils % (auto) 0.1 %; Hematocrit (blood only) 21.6 % (37-47); Hemoglobin 7.5 g/dL (12.0-16.0); Immature Granulocytes # (auto) 0.04 K/uL (0.00-0.02); Immature Granulocytes % (auto) 0.3 %; Lymphocytes # (auto) 1.72 K/uL (1.2-3.4); Lymphocytes % (auto) 12.3 %; Mean Corpuscular Hgb Conc 34.7 g/dL (32-36); Monocytes # (auto) 1.15 K/uL (0.11-0.59); Monocytes % (auto) 8.2 %; Neutrophils # (auto) 11.05 K/uL (1.4-6.5); Platelet Count 270 K/uL (130-400); RDW Coefficient of Variation 13.3 % (11.5-14.5); RDW Standard Deviation 40.4 fL (36.4-46.3); Red Blood Count 2.57 M/uL (4.2-5.4); White Blood Count 13.98 K/uL (4.8-10.8)
[2018-10-20 06:47] LABS: Basophilic Stippling 1+
[2018-10-20 06:54] LABS: BUN Creatinine Ratio 20.8 (10-20); Calcium 8.2 mg/dl (8.5-10.1); Creatinine Clr Calc Pharmacy 78.4 ml/min; Est GFR (Non-African American) 93.2; Potassium 3.7 mmol/L (3.5-5.1)
--- NOTE | 2018-10-20 07:04 | Surgery Progress Note ---
Date of Service October 20, 2018 Assessment & Plan (1) Tubulovillous adenoma of colon: Postoperative day #1 status post resection of right and proximal transverse colon H&H noted, will repeat this afternoon, will discontinue Lovenox Encourage patient to wear compression stockings Increase ambulation today Continue DIABETES MANAGER for now Continue clear liquids Present on Admission?: Yes Subjective Postoperative day #2 status post resection of right and proximal transverse colon Pain is a little bit less today Ambulated yesterday No flatus or bowel movement as yet Had mild nausea this morning but resolved with Zofran Tolerated sips of clear liquids Physical Exam Gastrointestinal (Abdomen): Inspection/Auscultation: + abdominal surgical incision (Clean, dry and intact); abdomen not distended Percussion/Palpation: + abdomen tender (Right side only) and abdomen soft Results & Data Vital Signs (Past 12 Hours) Vital Signs Temp Pulse Resp BP BP Pulse Ox 10/20/18 03:45 36.8 C 81 16 112/70 90 10/20/18 00:40 36.9 C 88 16 113/68 94 Laboratory Results 10/20/18 10/20/18 10/20/18 Range/Units 05:57 05:57 05:44 WBC 13.98 H (4.8-10.8) K/uL RBC 2.57 L (4.2-5.4) M/uL Hgb 7.5 L (12.0-16.0) g/dL Hct 21.6 L (37-47) % MCV 84.0 (80-100) fL MCH 29.2 (25-34) pg MCHC 34.7 (32-36) g/dL RDW Std Deviation 40.4 (36.4-46.3) fL RDW Coeff of Yoav 13.3 (11.5-14.5) % Plt Count 270 (130-400) K/uL MPV 8.0 (7.4-10.4) fL Immature Gran % (Auto) 0.3 % Neut % (Auto) 79.0 % Lymph % (Auto) 12.3 % Fountain % (Auto) 8.2 % Eos % (Auto) 0.1 % Baso % (Auto) 0.1 % Immature Gran # (Auto) 0.04 H (0.00-0.02) K/uL Neut # (Auto) 11.05 H (1.4-6.5) K/uL Lymph # (Auto) 1.72 (1.2-3.4) K/uL Fountain # (Auto) 1.15 H (0.11-0.59) K/uL Eos # (Auto) 0.01 (0-0.5) K/uL Baso # (Auto) 0.01 (0-0.2) K/uL Basophilic Stippling 1+ Sodium 136 (136-145) mmol/L Potassium 3.7 (3.5-5.1) mmol/L Chloride 106 (98-107) mmol/L Carbon Dioxide 25 (21-32) mmol/L Anion Gap 5.0 (3-11) BUN 12 D (7-18) mg/dl Creatinine 0.56 L D (0.6-1.2) mg/dl Est Cr Clr Drug Dosing 78.4 ml/min Est GFR ( Amer) 108.0 Est GFR (Non-Af Amer) 93.2 BUN/Creatinine Ratio 20.8 H (10-20) Glucose 122 H (70-99) mg/dl POC Glucose 133 H (70-99) Estimat Average Glucose mg/dl Hemoglobin A1c (4.5-5.6) % Calcium 8.2 L (8.5-10.1) mg/dl 10/19/18 10/19/18 10/19/18 Range/Units 23:43 18:37 11:59 WBC (4.8-10.8) K/uL RBC (4.2-5.4) M/uL Hgb (12.0-16.0) g/dL Hct (37-47) % MCV (80-100) fL MCH (25-34) pg MCHC (32-36) g/dL RDW Std Deviation (36.4-46.3) fL RDW Coeff of Yoav (11.5-14.5) % Plt Count (130-400) K/uL MPV (7.4-10.4) fL Immature Gran % (Auto) % Neut % (Auto) % Lymph % (Auto) % Fountain % (Auto) % Eos % (Auto) % Baso % (Auto) % Immature Gran # (Auto) (0.00-0.02) K/uL Neut # (Auto) (1.4-6.5) K/uL Lymph # (Auto) (1.2-3.4) K/uL Fountain # (Auto) (0.11-0.59) K/uL Eos # (Auto) (0-0.5) K/uL Baso # (Auto) (0-0.2) K/uL Basophilic Stippling Sodium (136-145) mmol/L Potassium (3.5-5.1) mmol/L Chloride (98-107) mmol/L Carbon Dioxide (21-32) mmol/L Anion Gap (3-11) BUN (7-18) mg/dl Creatinine (0.6-1.2) mg/dl Est Cr Clr Drug Dosing ml/min Est GFR ( Amer) Est GFR (Non-Af Amer) BUN/Creatinine Ratio (10-20) Glucose (70-99) mg/dl POC Glucose 168 H 179 H 220 H (70-99) Estimat Average Glucose mg/dl Hemoglobin A1c (4.5-5.6) % Calcium (8.5-10.1) mg/dl 10/19/18 10/19/18 10/19/18 Range/Units 07:15 07:15 07:15 WBC 22.89 H (4.8-10.8) K/uL RBC 3.46 L (4.2-5.4) M/uL Hgb 10.0 L (12.0-16.0) g/dL Hct 29.4 L (37-47) % MCV 85.0 (80-100) fL MCH 28.9 (25-34) pg MCHC 34.0 (32-36) g/dL RDW Std Deviation 40.2 (36.4-46.3) fL RDW Coeff of Yoav 13.2 (11.5-14.5) % Plt Count 430 H (130-400) K/uL MPV 8.6 (7.4-10.4) fL Immature Gran % (Auto) 0.4 % Neut % (Auto) 86.5 % Lymph % (Auto) 5.8 % Fountain % (Auto) 7.3 % Eos % (Auto) 0.0 % Baso % (Auto) 0.0 % Immature Gran # (Auto) 0.10 H (0.00-0.02) K/uL Neut # (Auto) 19.79 H (1.4-6.5) K/uL Lymph # (Auto) 1.32 (1.2-3.4) K/uL Fountain # (Auto) 1.67 H (0.11-0.59) K/uL Eos # (Auto) 0.00 (0-0.5) K/uL Baso # (Auto) 0.01 (0-0.2) K/uL Basophilic Stippling Sodium 137 (136-145) mmol/L Potassium 4.0 (3.5-5.1) mmol/L Chloride 107 (98-107) mmol/L Carbon Dioxide 19 L (21-32) mmol/L Anion Gap 11.0 (3-11) BUN 25 H (7-18) mg/dl Creatinine 0.89 (0.6-1.2) mg/dl Est Cr Clr Drug Dosing 49.3 ml/min Est GFR ( Amer) 75.0 Est GFR (Non-Af Amer) 64.7 BUN/Creatinine Ratio 27.9 H (10-20) Glucose 225 H (70-99) mg/dl POC Glucose (70-99) Estimat Average Glucose 171 mg/dl Hemoglobin A1c 7.6 H (4.5-5.6) % Calcium 8.4 L (8.5-10.1) mg/dl
--- NOTE | 2018-10-20 08:51 | Pharmacy Report ---
Pharmacy Glycemic Short Note 2 - Date of Service October 20, 2018 - Glycemic Short BSG Results (Last 24 hours): 10/19/18 10/19/18 10/19/18 11:59 18:37 23:43 Glucose POC Glucose 220 H 179 H 168 H 10/20/18 10/20/18 05:44 05:57 Glucose 122 H POC Glucose 133 H ASSESSMENT: 10/20: * Patient received total of 34 units of insulin yesterday, of which were 22 units of basal insulin * Had received steroids day prior, therefore anticipate insulin requirements for today to be less * Fasting BSG this am at 122 mg/dL - will give ~25% of home AM dosing this morning (6 units) - patient remains NPO this AM * Patient started on clears this afternoon, lunchtime BSG at 89 mg/dL - will utilize stress 2 for novolog CR * Per nurse, patient seems to be tolerating clears at this time/denies any N/V - received tray later this afternoon * Will add scale for this evening for Lantus with reduced dosing. Had called nurse to confirm Lantus dosing with patient. Patient reports dosing listed on med rec however does admit to missing doses and adjusting her dose herself. DM educator note also confirms noncompliance. 10/19: * 73 year old female now s/p colon resection. Today POD 1 - continues NPO/ice chips * Patient received total of ~18 units of insulin yesterday, of which 14 units were basal ( only ~50% of home dose of basal given) * Fasting BSG this morning elevated at 235 mg/dL - likely related to steroids/insufficient basal coverage day prior * Will increase to Lantus 12 units this am (which is an additional 4 units more from home dose to make up basal dosing from yesterday and to help cover steroids). Will add Lantus scale on for this evening based upon BSG * Patient on Q6 hr checks / already covered with Novolog this morning, however will further tighten for lunchtime check PLAN FOR INPATIENT GLYCEMIC CONTROL: * Pt is maintained on oral antidiabetic agents as an outpatient * Oral agents are not recommended for inpatient use d/t drug interactions, changing PO intake, and difficulty titrating for acute hyper/hypoglycemia. ADA recommends re-initiating outpatient oral agents 1-2 days prior to discharge if/when appropriate if they were held on admission. * Will hold oral agents for admission and utilize SQ basal bolus insulin regimen which is the recommended regimen for inpatient glycemic control. * Will initiate weight based insulin dosing for insulin buzz patient and titrate based on BSG trends. * Basal insulin * Lantus 6 units this am * Lantus HS per scale -For BSG <100 mg/dL - give 10 units -For BSG 100-160 mg/dL - give 12 units -For BSG >160 mg/dL - give 14 units * Bolus insulin - no change * NovoLog per scale ACHS or Q6hrs while NPO * Goal Range: Low 110 mg/dL - High 140 mg/dL * Correction Factor: 20 mg/dL/unit * Nutritional / Prandial insulin per carb ratio of 1 unit per 12 grams CHO consumed PLAN FOR DISCHARGE: * Patient's A1c (7.6) indicates good glycemic control as an outpatient. * Expect that patient may resume home regimen on discharge, as long as she does not report having episodes of hypoglycemia.
[2018-10-20] MEDS ORDERED: INSULIN GLARGINE SOLOSTAR 100 UNITS/ML 3 ML PEN SC ONE (09:00)
[2018-10-20] MEDS ORDERED: INSULIN GLARGINE SOLOSTAR 100 UNITS/ML 3 ML PEN SC SCH ×3 (09:00→21:00)
--- NOTE | 2018-10-20 10:14 | Hospitalist Progress Note ---
Date of Service October 20, 2018 Assessment & Plan (1) Tubulovillous adenoma of colon: POD #2 R hemicolectomy - prox transverse colon resection by Dr. Peralta tolerated procedure well EBL 350ml Incisions healing well pain/wound control per surgery bowel regimen per surgery advance diet as directed by surgery Lovenox d/c secondary to post op anemia - encourage ambulation Pt with ectopy on auscultation - prior ecg revealed PVC - obtain ecg today (2) Acute blood loss anemia: H&H decreased to 7.5 and 21.6 preop 11.1/32.3 Lovenox discontinued repeat H/H this afternoon transfuse Hbg < 7 (3) Urinary retention: Patient with intermittent postop urinary retention Per nursing staff patient had PVR 300-400ml last evening but patient able to void w/o need for straight cath monitor PVR if requires consistent straight cath will place arboleda (4) T2DM (type 2 diabetes mellitus): A1c 8.3 as of 05/19/2018 Glycemic pharmacy is on board continue to hold oral hypoglycemics (glimepiride and metformin) Blood glucose controlled, continue to monitor (5) HTN (hypertension): Blood pressure stable Lisinopril on hold Pt currently NPO - per surgery to upgrade to clears today Monitor (6) DVT prophylaxis: Encourage ambulation Lovenox discontinued secondary to anemia Disposition: Per primary Follow-up: PCP Dr. Singh ([place]) upon discharge Patient was seen and examined in collaboration with Dr. Hung, please see addendum Supervising Physician Co-Signing Physician Notes Patient is seen and examined at bedside. Patient complains of abdominal pain at surgical site which is controlled. Was nauseous earlier today which currently resolved with medications. Denies any vomiting, chest pain, shortness of breath. Plan to be started on clear liquid diet today. Hemoglobin dropped to 6.8 today. Plan to transfuse 2 units PRBCs. On exam patient is moderately built and nourished, no apparent distress, normocephalic atraumatic, lungs clear to auscultation, heart- S1-S2, no murmur, abdomen--mild abdominal tenderness, decreased bowel sounds, no focal neurological deficits, no pedal edema. Agree with PRBC transfusion. Monitor H&H. Diet as tolerated. Pain control. Minimize pain meds as able. Bladder Scan PRN and monitor Urinary Output. I personally reviewed the record. Patient is interviewed and examined at bedside. Patient's care is coordinated with Kelly Hamilton PA-C. Please refer to the documentation above for details of patient's presentation and for discussion of other issues. Subjective Patient was seen and examined in room 379-2 Follow up POD #2 R hemicolectomy, prox transverse colon resection Patient offers no acute complaints. Complains of incisional abdominal pain, but denies f/c/s, dizziness, chest pain, n/v. Has not passed flatus. States she is getting up and ambulating about room. +Difficulty urinating, + urgency but denies hematuria or frequency. Review of Systems Review of Systems: As noted per HPI, 10 systems reviewed and negative unless noted above. Physical Exam Physical Exam: Gen: WD/WN, F, lying in bed, NAD, A&O x3 HEENT: Normocephalic, atraumatic, conjunctivae moist, sclerae anicteric, mucous membranes moist. Lung: Clear to Auscultation bilaterally, no wheezes/rales/rhonchi Heart: Regular rate, regular rhythm, +ectopy, no murmurs, rubs, or gallops Abdomen: +abdominal incision x 4, hoa CDI, Soft, NT, ND +BS x 4 Extremities: No edema Skin: Warm, no rash, negative turgor. Results & Data Vital Signs (Past 12 Hours) Vital Signs Temp Pulse Resp BP BP Pulse Ox 10/20/18 07:12 36.8 C 84 18 110/61 93 10/20/18 03:45 36.8 C 81 16 112/70 90 10/20/18 00:40 36.9 C 88 16 113/68 94 Laboratory Results Short CBC 10/20/18 Range/Units 05:57 WBC 13.98 H (4.8-10.8) K/uL Hgb 7.5 L (12.0-16.0) g/dL Hct 21.6 L (37-47) % Plt Count 270 (130-400) K/uL BMP 10/20/18 05:57 Sodium 136 Potassium 3.7 Chloride 106 Carbon Dioxide 25 BUN 12 D Creatinine 0.56 L D Glucose 122 H Calcium 8.2 L Medications Administered Al Hydrox/Mg Hydrox/Simethicone (Maalox) 30 ml NG Q6H [place]STINEE Stop: 11/17/18 18:59 Last Admin: 10/20/18 05:45 Dose: 30 ml Documented by: [id number] Admin: 10/20/18 00:20 Dose: 30 ml Documented by: [id number] Admin: 10/19/18 18:43 Dose: 30 ml Documented by: [id number] Admin: 10/19/18 12:27 Dose: Not Given Documented by: [id number] Admin: 10/19/18 06:04 Dose: 30 ml Documented by: [id number] Admin: 10/19/18 00:09 Dose: 30 ml Documented by: [id number] Admin: 10/18/18 20:19 Dose: 30 ml Documented by: [id number] Hydromorphone HCl (Dilaudid Machine Ii Engraver) 25 mg IV PRN PRN; Protocol PRN Reason: Pain Stop: 11/01/18 18:55 Last Admin: 10/18/18 20:22 Dose: 25 mg Documented by: [id number] Cosigned by: [id number] Sodium Chloride (Nss 1000ml) 1,000 mls @ 15 mls/hr IV .Q24H DESTINEE Stop: 11/01/18 18:59 Last Admin: 10/19/18 20:05 Dose: Not Given Documented by: [id number] Admin: 10/18/18 20:28 Dose: Not Given Documented by: [id number] Sodium Chloride (Nss 1000ml) 1,000 mls @ 125 mls/hr IV .Q8H DESTINEE Stop: 11/17/18 18:59 Last Admin: 10/20/18 03:56 Dose: 125 mls/hr Documented by: [id number] Infusion: 10/20/18 03:56 Dose: 125 mls/hr Documented by: [id number] Admin: 10/19/18 20:05 Dose: 125 mls/hr Documented by: [id number] Infusion: 10/19/18 19:51 Dose: 125 mls/hr Documented by: [id number] Admin: 10/19/18 11:51 Dose: 125 mls/hr Documented by: [id number] Infusion: 10/19/18 11:51 Dose: 125 mls/hr Documented by: [id number] Admin: 10/19/18 03:51 Dose: 125 mls/hr Documented by: [id number] Infusion: 10/19/18 03:51 Dose: 125 mls/hr Documented by: [id number] Admin: 10/18/18 20:14 Dose: 125 mls/hr Documented by: [id number] Insulin Aspart (Novolog Flexpen) 0 units SC Q6 DESTINEE; Protocol Stop: 11/18/18 00:00 Last Admin: 10/20/18 05:49 Dose: Not Given Documented by: [id number] Cosigned by: [id number] Admin: 10/20/18 01:06 Dose: 2 units Documented by: [id number] Cosigned by: [id number] Admin: 10/19/18 18:42 Dose: 2 units Documented by: [id number] Cosigned by: [id number] Admin: 10/19/18 12:26 Dose: 4 units Documented by: [id number] Cosigned by: [id number] Admin: 10/19/18 05:54 Dose: 4 units Documented by: [id number] Cosigned by: [id number] Admin: 10/19/18 00:05 Dose: 4 units Documented by: [id number] Cosigned by: [id number] Ondansetron HCl (Zofran) 4 mg IV Q6H PRN PRN Reason: Nausea And Vomiting Stop: 11/17/18 18:55 Last Admin: 10/20/18 05:39 Dose: 4 mg Documented by: [id number] Admin: 10/18/18 19:08 Dose: 4 mg Documented by: [id number] Discontinued Medications Bupivacaine HCl (Marcaine 0.5% Mpf) Confirm Administered Dose 30 ml .ROUTE .STK- MED ONE Stop: 10/18/18 13:04 Last Admin: 10/18/18 17:21 Dose: 30 ml Documented by: [id number] Enoxaparin Sodium (Lovenox) 30 mg SQ Q24H [facility] Stop: 11/17/18 19:59 Last Admin: 10/19/18 20:06 Dose: 30 mg Documented by: [id number] Fentanyl Citrate (Fentanyl Citrate) 50 mcg IV Q5M PRN PRN Reason: PACU Use Only-Pain Stop: 10/18/18 20:00 Last Admin: 10/18/18 18:00 Dose: 50 mcg Documented by: [id number] Admin: 10/18/18 17:55 Dose: 50 mcg Documented by: [id number] Admin: 10/18/18 17:50 Dose: 50 mcg Documented by: [id number] Fentanyl Citrate (Fentanyl Citrate) Confirm Administered Dose 200 mcg .ROUTE .STK-MED ONE Stop: 10/18/18 17:56 Last Admin: 10/18/18 18:06 Dose: Not Given Documented by: [id number] Lactated Ringer's (Lr) 1,000 mls @ 15 mls/hr IV .Q24H [place] Stop: 10/19/18 05:59 Last Infusion: 10/18/18 13:00 Dose: 0 mls/hr Documented by: [id number] Admin: 10/18/18 08:54 Dose: 15 mls/hr Documented by: [id number] Cefoxitin Sodium 2,000 mg/ (Dextrose) 60 mls @ 120 mls/hr IV TODAY@0600 [place] Stop: 10/18/18 18:00 Last Infusion: 10/18/18 20:14 Dose: 0 mls/hr Documented by: [id number] Admin: 10/18/18 12:58 Dose: 120 mls/hr Documented by: [id number] Insulin Glargine (Lantus Solostar Pen) 0 units SC BID DESTINEE; Protocol Stop: 11/17/18 20:59 Last Admin: 10/18/18 22:01 Dose: 10 units Documented by: [id number] Cosigned by: [id number] Insulin Glargine (Lantus Solostar Pen) 12 units SC TODAY@0900 ONE; Protocol Stop: 10/19/18 09:01 Last Admin: 10/19/18 09:15 Dose: 12 units Documented by: [id number] Cosigned by: [id number] Insulin Glargine (Lantus Solostar Pen) 0 units SC TODAY@1800 [place]STINEE; Protocol Stop: 10/19/18 23:59 Last Admin: 10/19/18 18:40 Dose: 10 units Documented by: [id number] Cosigned by: [id number] Insulin Glargine (Lantus Solostar Pen) 6 units SC TODAY@0900 ONE; Protocol Stop: 10/20/18 09:01 Last Admin: 10/20/18 09:10 Dose: 6 units Documented by: [id number] Cosigned by: [id number]
[2018-10-20 15:29] LABS: Hematocrit (blood only) 19.7 % (37-47); Hemoglobin 6.8 g/dL (12.0-16.0); Mean Corpuscular Hgb Conc 34.5 g/dL (32-36); Mean Platelet Volume 8.3 fL (7.4-10.4); Platelet Count 260 K/uL (130-400); RDW Coefficient of Variation 13.3 % (11.5-14.5); RDW Standard Deviation 41.8 fL (36.4-46.3); Red Blood Count 2.29 M/uL (4.2-5.4); White Blood Count 11.83 K/uL (4.8-10.8)
[2018-10-20 15:32] LABS: Basophils # (auto) 0.02 K/uL (0-0.2); Basophils % (auto) 0.2 %; Echinocytes 1+; Eosinophils # (auto) 0.03 K/uL (0-0.5); Eosinophils % (auto) 0.3 %; Immature Granulocytes # (auto) 0.03 K/uL (0.00-0.02); Immature Granulocytes % (auto) 0.3 %; Lymphocytes # (auto) 1.21 K/uL (1.2-3.4); Lymphocytes % (auto) 10.2 %; Monocytes # (auto) 0.74 K/uL (0.11-0.59); Monocytes % (auto) 6.3 %; Neutrophils % (auto) 82.7 %
[2018-10-20] MEDS ORDERED: SODIUM CHLORIDE 0.9% 250 ML IV PRN ×2 (15:59→16:44)
[2018-10-20] MEDS ORDERED: FUROSEMIDE 20 MG in SYRINGE 0 ML IV SCH (16:15)
--- NOTE | 2018-10-20 16:16 | Communication Note ---
Date of Service: October 20, 2018 Received critical value call by 3rd floor. Repeat hemoglobin this afternoon 6.8 (7.5 this morning). Vitals stable. Abdominal pain controlled. Tolerating clear liquids. No return of bowel function yet. No nausea or vomiting. Was able to urinate on her own. IV fluids running at 125 mls/hr. 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 Plan: Discussed Hemoglobin level with Dr. Peralta and Kelly Hamilton PA-C with hospitalist group. Recommend 2 units of PRBCs with 20 mg of Lasix after 1st unit. Discussed with patient, she is agreeable to blood transfusion. Consent obtained. Will check H&H q 6 hours Hold IV fluids while receiving blood transfusion, resume at 60 mls/hr after transfusion continue clear liquids Continues SCDs while in bed since Lovenox discontinued
[2018-10-20] MEDS ORDERED: Nursing to Pharmacy Communication ONE ×2 (17:52→23:10)
[2018-10-20] MEDS: ALUMINUM/MAGNESIUM SUSP 30 ML UDC PO SCH ×2 (19:26→23:40)
[2018-10-20 22:29] LABS: Hematocrit (blood only) 26.2 % (37-47); Hemoglobin 9.1 g/dL (12.0-16.0)
[2018-10-21] MEDS ORDERED: INSULIN ASPART 100 UNITS/ML 3 ML PEN SC SCH
[2018-10-21] MEDS: SODIUM CHLORIDE 0.9% 1000ML 1,000 ML IV SCH ×2 (01:30→18:02)
[2018-10-21 03:11] LABS: Basophils # (auto) 0.01 K/uL (0-0.2); Basophils % (auto) 0.1 %; Eosinophils % (auto) 1.1 %; Hematocrit (blood only) 26.8 % (37-47); Hemoglobin 9.4 g/dL (12.0-16.0); Immature Granulocytes # (auto) 0.02 K/uL (0.00-0.02); Immature Granulocytes % (auto) 0.2 %; Lymphocytes # (auto) 1.82 K/uL (1.2-3.4); Lymphocytes % (auto) 19.3 %; Mean Corpuscular Hgb Conc 35.1 g/dL (32-36); Mean Corpuscular Volume 85.1 fL (80-100); Mean Platelet Volume 8.4 fL (7.4-10.4); Monocytes # (auto) 0.75 K/uL (0.11-0.59); Neutrophils # (auto) 6.71 K/uL (1.4-6.5); Neutrophils % (auto) 71.3 %; Platelet Count 216 K/uL (130-400); RDW Coefficient of Variation 13.3 % (11.5-14.5); RDW Standard Deviation 41.1 fL (36.4-46.3); Red Blood Count 3.15 M/uL (4.2-5.4); White Blood Count 9.41 K/uL (4.8-10.8)
[2018-10-21 03:52] LABS: Creatinine Clr Calc Pharmacy 81.3 ml/min; Est GFR (African American) 109.3; Est GFR (Non-African American) 94.3
[2018-10-21] MEDS: ALUMINUM/MAGNESIUM SUSP 30 ML UDC PO SCH ×4 (05:25→23:30)
--- NOTE | 2018-10-21 08:54 | Surgery Progress Note ---
Date of Service October 21, 2018 Assessment & Plan (1) Tubulovillous adenoma of colon: Postoperative day #3 status post resection of right colon and proximal transverse colon Subjectively improved Peristalsis is returning and will advance to full liquid diet Encouraged ambulation Must wear compression stockings as I do not want to institute Lovenox considering her decreased H&H H&H has increased after 2 unit transfusion and will continue to monitor Present on Admission?: Yes Subjective Postoperative day #3 status post resection of right colon and proximal transverse colon Stated abdomen feels better today Denies nausea and vomiting Tolerated clear liquids Has not passed flatus or had a bowel movement as yet Had 2 unit blood transfusion last night. Hemoglobin had increased to 9.4 and is pending at this time Physical Exam Gastrointestinal (Abdomen): Inspection/Auscultation: normal bowel sounds (Active and of normal pitch) Percussion/Palpation: + abdomen tender (Mild mostly right-sided but improved compared to yesterday) and abdomen soft Results & Data Vital Signs (Past 12 Hours) Vital Signs Temp Pulse Pulse Resp BP BP Pulse Ox 10/21/18 07:05 36.8 C 69 18 128/71 92 10/21/18 03:29 36.6 C 79 18 120/66 95 10/21/18 00:53 36.8 C 59 L 16 124/65 92 10/20/18 23:59 36.9 C 62 18 126/79 93 10/20/18 23:30 37 C 93 H 18 154/63 H 94 10/20/18 23:00 37.1 C 77 18 114/68 92 10/20/18 22:42 37.2 C 81 18 121/70 92 10/20/18 22:23 37 C 118 H 20 146/72 H 92 Laboratory Results 10/21/18 10/21/18 10/21/18 Range/Units 08:37 08:21 08:05 WBC (4.8-10.8) K/uL RBC (4.2-5.4) M/uL Hgb (12.0-16.0) g/dL Hct (37-47) % MCV (80-100) fL MCH (25-34) pg MCHC (32-36) g/dL RDW Std Deviation (36.4-46.3) fL RDW Coeff of Yoav (11.5-14.5) % Plt Count (130-400) K/uL MPV (7.4-10.4) fL Immature Gran % (Auto) % Neut % (Auto) % Lymph % (Auto) % [place] % (Auto) % Eos % (Auto) % Baso % (Auto) % Immature Gran # (Auto) (0.00-0.02) K/uL Neut # (Auto) (1.4-6.5) K/uL Lymph # (Auto) (1.2-3.4) K/uL [place] # (Auto) (0.11-0.59) K/uL Eos # (Auto) (0-0.5) K/uL Baso # (Auto) (0-0.2) K/uL Echinocytes Creatinine (0.6-1.2) mg/dl Est Cr Clr Drug Dosing ml/min Est GFR ( Amer) Est GFR (Non-Af Amer) POC Glucose 98 56 L* 53 L* (70-99) Blood Type Blood Type Recheck Antibody Screen Crossmatch 10/21/18 10/21/18 10/20/18 Range/Units 03:00 03:00 22:01 WBC 9.41 (4.8-10.8) K/uL RBC 3.15 L (4.2-5.4) M/uL Hgb 9.4 L 9.1 L (12.0-16.0) g/dL Hct 26.8 L 26.2 L (37-47) % MCV 85.1 (80-100) fL MCH 29.8 (25-34) pg MCHC 35.1 (32-36) g/dL RDW Std Deviation 41.1 (36.4-46.3) fL RDW Coeff of Yoav 13.3 (11.5-14.5) % Plt Count 216 (130-400) K/uL MPV 8.4 (7.4-10.4) fL Immature Gran % (Auto) 0.2 % Neut % (Auto) 71.3 % Lymph % (Auto) 19.3 % [place] % (Auto) 8.0 % Eos % (Auto) 1.1 % Baso % (Auto) 0.1 % Immature Gran # (Auto) 0.02 (0.00-0.02) K/uL Neut # (Auto) 6.71 H (1.4-6.5) K/uL Lymph # (Auto) 1.82 (1.2-3.4) K/uL [place] # (Auto) 0.75 H (0.11-0.59) K/uL Eos # (Auto) 0.10 (0-0.5) K/uL Baso # (Auto) 0.01 (0-0.2) K/uL Echinocytes Creatinine 0.54 L (0.6-1.2) mg/dl Est Cr Clr Drug Dosing 81.3 ml/min Est GFR ( Amer) 109.3 Est GFR (Non-Af Amer) 94.3 POC Glucose (70-99) Blood Type Blood Type Recheck Antibody Screen Crossmatch 10/20/18 10/20/18 10/20/18 Range/Units 20:42 17:03 15:04 WBC (4.8-10.8) K/uL RBC (4.2-5.4) M/uL Hgb (12.0-16.0) g/dL Hct (37-47) % MCV (80-100) fL MCH (25-34) pg MCHC (32-36) g/dL RDW Std Deviation (36.4-46.3) fL RDW Coeff of Yoav (11.5-14.5) % Plt Count (130-400) K/uL MPV (7.4-10.4) fL Immature Gran % (Auto) % Neut % (Auto) % Lymph % (Auto) % [place] % (Auto) % Eos % (Auto) % Baso % (Auto) % Immature Gran # (Auto) (0.00-0.02) K/uL Neut # (Auto) (1.4-6.5) K/uL Lymph # (Auto) (1.2-3.4) K/uL [place] # (Auto) (0.11-0.59) K/uL Eos # (Auto) (0-0.5) K/uL Baso # (Auto) (0-0.2) K/uL Echinocytes Creatinine (0.6-1.2) mg/dl Est Cr Clr Drug Dosing ml/min Est GFR ( Amer) Est GFR (Non-Af Amer) POC Glucose 110 H 118 H (70-99) Blood Type Blood Type Recheck A Positive Antibody Screen Crossmatch 10/20/18 10/20/18 10/18/18 Range/Units 15:04 12:33 08:40 WBC 11.83 H (4.8-10.8) K/uL RBC 2.29 L (4.2-5.4) M/uL Hgb 6.8 L* (12.0-16.0) g/dL Hct 19.7 L* (37-47) % MCV 86.0 (80-100) fL MCH 29.7 (25-34) pg MCHC 34.5 (32-36) g/dL RDW Std Deviation 41.8 (36.4-46.3) fL RDW Coeff of Yoav 13.3 (11.5-14.5) % Plt Count 260 (130-400) K/uL MPV 8.3 (7.4-10.4) fL Immature Gran % (Auto) 0.3 % Neut % (Auto) 82.7 % Lymph % (Auto) 10.2 % [place] % (Auto) 6.3 % Eos % (Auto) 0.3 % Baso % (Auto) 0.2 % Immature Gran # (Auto) 0.03 H (0.00-0.02) K/uL Neut # (Auto) 9.80 H (1.4-6.5) K/uL Lymph # (Auto) 1.21 (1.2-3.4) K/uL [place] # (Auto) 0.74 H (0.11-0.59) K/uL Eos # (Auto) 0.03 (0-0.5) K/uL Baso # (Auto) 0.02 (0-0.2) K/uL Echinocytes 1+ Creatinine (0.6-1.2) mg/dl Est Cr Clr Drug Dosing ml/min Est GFR ( Amer) Est GFR (Non-Af Amer) POC Glucose 89 (70-99) Blood Type A Positive Blood Type Recheck Antibody Screen NEGATIVE Crossmatch See Detail
[2018-10-21] MEDS: INSULIN ASPART 100 UNITS/ML 3 ML PEN SC SCH ×4 (09:06→21:45)
[2018-10-21 09:15] LABS: Hematocrit (blood only) 27.8 % (37-47); Hemoglobin 9.7 g/dL (12.0-16.0)
[2018-10-21 09:50] LABS: Calcium 8.1 mg/dl (8.5-10.1); Creatinine Clr Calc Pharmacy 81.3 ml/min; Est GFR (African American) 109.3; Est GFR (Non-African American) 94.3; Potassium 3.1 mmol/L (3.5-5.1)
--- NOTE | 2018-10-21 10:13 | Hospitalist Progress Note ---
Date of Service October 21, 2018 Assessment & Plan (1) Tubulovillous adenoma of colon: POD #3 R hemicolectomy - prox transverse colon resection by Dr. Peralta Tolerated procedure well EBL 350ml Incisions healing well Pain/wound control per surgery Bowel regimen per surgery Diet advanced to full liquids as directed by surgery Lovenox d/c secondary to post op anemia - encourage ambulation. SCDs ordered Pt with ectopy on auscultation - ecg revealed PVC (2) Acute blood loss anemia: H&H decreased to 7.5 and 21.6 yesterday afternoon-- received 2u prbcs with 20mg IV Lasix in between H&H improved to 9.7 and 27.8 today Lovenox discontinued Continue to monitor. Transfuse Hbg < 7 (3) Urinary retention: Patient with intermittent postop urinary retention Required straight cath yesterday but output improved after lasix Continue to monitor PVR. If requires consistent straight cath, will need arboleda (4) T2DM (type 2 diabetes mellitus): A1c 8.3 as of 05/19/2018 Glycemic pharmacy is on board Continue to hold oral hypoglycemics (glimepiride and metformin) Blood glucose controlled, continue to monitor (5) HTN (hypertension): Blood pressure stable Lisinopril on hold. Plan to resume tomorrow Diet advanced to full liquid diet Monitor (6) DVT prophylaxis: Encourage ambulation Lovenox discontinued secondary to anemia Disposition: Per primary Follow-up: PCP Dr. Singh (Sarah Ann) upon discharge Patient was seen and examined in collaboration with Dr. Hung, please see addendum Supervising Physician Co-Signing Physician Notes Patient is seen and examined at bedside. Patient is tolerating diet. Diet advanced to full liquid diet. + flatus. No BM yet. Abdominal pain is controlled. Denies nausea, vomiting. Hemoglobin 9.7 after 2 units PRBC transfusion yesterday. Denies any chest pain, shortness of breath. Hypokalemia likely due to poor oral intake. Replace potassium supplements as needed. On exam patient is moderately built and nourished, no apparent distress, normocephalic atraumatic, lungs clear to auscultation, heart- S1-S2, no murmur, abdomen--mild abdominal tenderness, decreased bowel sounds, no focal neurological deficits, no pedal edema. Agree with PRBC transfusion. Monitor H&H. Diet as tolerated. Pain control. Minimize pain meds as able. Bladder Scan PRN and monitor Urinary Output. I personally reviewed the record. Patient is interviewed and examined at bedside. Patient's care is coordinated with Antonella Masterson PA-C. Please refer to the documentation above for details of patient's presentation and for discussion of other issues. Subjective Patient seen and examined. Resting comfortably, mild surgical site pain. Diet advanced to full liquids, patient tolerating well. + began passing flatus. No BM yet. Urinating without issue this morning. Denies fever, chills, lightheadedness, chest pain, SOB, nausea, vomiting or dysuria. Has a cough that is new since yesterday, per patient. Encouraged to ambulate more today. Review of Systems Review of Systems: At least ten systems reviewed and negative except as noted in the HPI. Physical Exam Physical Exam: General Appearance: WD/WN, no apparent distress, resting comfortably Head: normocephalic, atraumatic Eyes: normal inspection, PERRL, EOMI ENT: hearing grossly normal, pharynx normal (moist mucous membranes) Neck: supple, no JVD, no adenopathy Respiratory/Chest: lungs clear to auscultation except for rhonchi in RUL. No wheezes or rales. No respiratory distress or accessory muscle use Cardiovascular: regular rate, rhythm, + ectopy. No murmur appreciated, normal peripheral pulses, no BLE edema Abdomen/GI: normal bowel sounds, soft, mildly tender to palpation, hoa visualized without erythema or drainage Extremities/Musculoskelatal: normal inspection, no calf tenderness, normal capillary refill, no pedal edema Neurologic/Psych: alert, normal mood/affect, oriented x 3 Skin: normal color, warm/dry Results & Data Vital Signs (Past 12 Hours) Vital Signs Temp Pulse Pulse Resp BP BP Pulse Ox 10/21/18 07:05 36.8 C 69 18 128/71 92 10/21/18 03:29 36.6 C 79 18 120/66 95 10/21/18 00:53 36.8 C 59 L 16 124/65 92 10/20/18 23:59 36.9 C 62 18 126/79 93 10/20/18 23:30 37 C 93 H 18 154/63 H 94 10/20/18 23:00 37.1 C 77 18 114/68 92 10/20/18 22:42 37.2 C 81 18 121/70 92 10/20/18 22:23 37 C 118 H 20 146/72 H 92 Laboratory Results Short CBC 10/20/18 10/20/18 10/21/18 Range/Units 15:04 22:01 03:00 WBC 11.83 H 9.41 (4.8-10.8) K/uL Hgb 6.8 L* 9.1 L 9.4 L (12.0-16.0) g/dL Hct 19.7 L* 26.2 L 26.8 L (37-47) % Plt Count 260 216 (130-400) K/uL 10/21/18 Range/Units 09:03 WBC (4.8-10.8) K/uL Hgb 9.7 L (12.0-16.0) g/dL Hct 27.8 L (37-47) % Plt Count (130-400) K/uL BMP 10/21/18 10/21/18 03:00 09:03 Sodium 138 Potassium 3.1 L D Chloride 105 Carbon Dioxide 28 BUN 6 L D Creatinine 0.54 L 0.54 L Glucose 131 H Calcium 8.1 L
[2018-10-21] MEDS ORDERED: INSULIN GLARGINE SOLOSTAR 100 UNITS/ML 3 ML PEN SC SCH (11:30)
--- NOTE | 2018-10-21 13:50 | Pharmacy Report ---
Pharmacy Glycemic Short Note 2 - Date of Service October 21, 2018 - Glycemic Short BSG Results (Last 24 hours): 10/20/18 10/20/18 10/21/18 17:03 20:42 08:05 Glucose POC Glucose 118 H 110 H 53 L* 10/21/18 10/21/18 10/21/18 08:21 08:37 09:03 Glucose 131 H POC Glucose 56 L* 98 10/21/18 12:17 Glucose POC Glucose 88 ASSESSMENT: 10/21 * Patient received 16 units of insulin yesterday, all of which was basal insulin * Hypoglycemic fasting this morning, 53, will loosen basal parameters, patient has been consuming limited carbs * POD 3, patient has advanced to full liquid diet, will continue stress of 2 carb ratio 10/20: * Patient received total of 34 units of insulin yesterday, of which were 22 units of basal insulin * Had received steroids day prior, therefore anticipate insulin requirements for today to be less * Fasting BSG this am at 122 mg/dL - will give ~25% of home AM dosing this morning (6 units) - patient remains NPO this AM * Patient started on clears this afternoon, lunchtime BSG at 89 mg/dL - will utilize stress 2 for novolog CR * Per nurse, patient seems to be tolerating clears at this time/denies any N/V - received tray later this afternoon * Will add scale for this evening for Lantus with reduced dosing. Had called nurse to confirm Lantus dosing with patient. Patient reports dosing listed on med rec however does admit to missing doses and adjusting her dose herself. DM educator note also confirms noncompliance. 10/19: * 73 year old female now s/p colon resection. Today POD 1 - continues NPO/ice chips * Patient received total of ~18 units of insulin yesterday, of which 14 units were basal ( only ~50% of home dose of basal given) * Fasting BSG this morning elevated at 235 mg/dL - likely related to steroids/insufficient basal coverage day prior * Will increase to Lantus 12 units this am (which is an additional 4 units more from home dose to make up basal dosing from yesterday and to help cover steroids). Will add Lantus scale on for this evening based upon BSG * Patient on Q6 hr checks / already covered with Novolog this morning, however will further tighten for lunchtime check PLAN FOR INPATIENT GLYCEMIC CONTROL: * Pt is maintained on oral antidiabetic agents as an outpatient * Oral agents are not recommended for inpatient use d/t drug interactions, changing PO intake, and difficulty titrating for acute hyper/hypoglycemia. ADA recommends re-initiating outpatient oral agents 1-2 days prior to discharge if/when appropriate if they were held on admission. * Will hold oral agents for admission and utilize SQ basal bolus insulin regimen which is the recommended regimen for inpatient glycemic control. * Basal insulin- loosen * Lantus 4 units at lunch * Lantus HS per scale -For BSG <140 mg/dL - give 6 units (total ~40% reduction) -For BSG 140-200 mg/dL - give 8 units (~25% reduction) -For BSG >160 mg/dL - give 10 units (~13% reduction * Bolus insulin - no change * NovoLog per scale ACHS or Q6hrs while NPO * Goal Range: Low 110 mg/dL - High 140 mg/dL * Correction Factor: 20 mg/dL/unit * Nutritional / Prandial insulin per carb ratio of 1 unit per 14 grams CHO consumed PLAN FOR DISCHARGE: * Patient's A1c (7.6) indicates acceptable glycemic control as an outpatient. * Patient reports some noncompliance to home regimen (missing doses/adjusting herself), patient should continue to work on adjustments with outpatient provider.
[2018-10-21] MEDS ORDERED: OXYCODONE/ACETAMINOPHEN 5mg/325mg TAB PO PRN (15:45)
[2018-10-21] MEDS ORDERED: MoRPHine SULFATE 2 MG/ML CARP IV PRN (15:45)
[2018-10-21] MEDS ORDERED: MoRPHine SULFATE 4 MG/ML 1 ML CARP\\VIAL IV PRN (15:45)
[2018-10-21] MEDS ORDERED: ACETAMINOPHEN 325 MG TAB PO PRN (15:47)
[2018-10-21] MEDS ORDERED: POTASSIUM CHLORIDE 20 MEQ TABCR PO ONE (17:00)
[2018-10-22] MEDS: OXYCODONE/ACETAMINOPHEN 5mg/325mg TAB PO PRN ×4 (01:11→21:41)
[2018-10-22] MEDS: ALUMINUM/MAGNESIUM SUSP 30 ML UDC PO SCH ×3 (05:57→18:10)
[2018-10-22 06:47] LABS: Hematocrit (blood only) 30.2 % (37-47); Hemoglobin 10.6 g/dL (12.0-16.0); Mean Corpuscular Hgb Conc 35.1 g/dL (32-36); Mean Corpuscular Volume 84.6 fL (80-100); Mean Platelet Volume 8.7 fL (7.4-10.4); Platelet Count 278 K/uL (130-400); RDW Coefficient of Variation 13.4 % (11.5-14.5); RDW Standard Deviation 40.9 fL (36.4-46.3); Red Blood Count 3.57 M/uL (4.2-5.4); White Blood Count 7.35 K/uL (4.8-10.8)
--- NOTE | 2018-10-22 07:05 | Surgery Progress Note ---
Date of Service October 22, 2018 Assessment & Plan (1) Tubulovillous adenoma of colon: Postoperative day #4 status post resection of right colon and proximal transverse colon Peristalsis has returned, will advance to low fiber diet Encouraged ambulation Must wear compression stockings as I do not want to institute Lovenox considering her decreased H&H H&H stable If tolerates soft diet will most likely be able to be discharged tomorrow Subjective Postoperative day #4, status post resection of right and proximal transverse colon Feels better today Abdominal pain is minimal Has had 2 bowel movements Tolerating full liquid diet Tolerating ambulation Physical Exam Gastrointestinal (Abdomen): Inspection/Auscultation: normal bowel sounds; abdomen not distended Percussion/Palpation: + abdomen tender (Right side only but decreased) and abdomen soft Results & Data Vital Signs (Past 12 Hours) Vital Signs Temp Pulse Resp BP Pulse Ox 10/22/18 06:55 36.7 C 72 18 128/75 93 10/21/18 23:08 36.9 C 81 18 125/76 95 Laboratory Results 10/22/18 10/22/18 10/21/18 Range/Units 06:33 06:33 20:32 WBC 7.35 (4.8-10.8) K/uL RBC 3.57 L (4.2-5.4) M/uL Hgb 10.6 L (12.0-16.0) g/dL Hct 30.2 L (37-47) % MCV 84.6 (80-100) fL MCH 29.7 (25-34) pg MCHC 35.1 (32-36) g/dL RDW Std Deviation 40.9 (36.4-46.3) fL RDW Coeff of Yoav 13.4 (11.5-14.5) % Plt Count 278 (130-400) K/uL MPV 8.7 (7.4-10.4) fL Sodium 139 (136-145) mmol/L Potassium 3.4 L (3.5-5.1) mmol/L Chloride 108 H (98-107) mmol/L Carbon Dioxide 27 (21-32) mmol/L Anion Gap 4.0 (3-11) BUN 5 L (7-18) mg/dl Creatinine 0.46 L (0.6-1.2) mg/dl Est Cr Clr Drug Dosing 95.5 ml/min Est GFR ( Amer) 115.2 Est GFR (Non-Af Amer) 99.4 BUN/Creatinine Ratio 10.5 (10-20) Glucose 68 L (70-99) mg/dl POC Glucose 128 H (70-99) Calcium 7.7 L (8.5-10.1) mg/dl 10/21/18 10/21/18 10/21/18 Range/Units 17:07 12:17 09:03 WBC (4.8-10.8) K/uL RBC (4.2-5.4) M/uL Hgb 9.7 L (12.0-16.0) g/dL Hct 27.8 L (37-47) % MCV (80-100) fL MCH (25-34) pg MCHC (32-36) g/dL RDW Std Deviation (36.4-46.3) fL RDW Coeff of Yoav (11.5-14.5) % Plt Count (130-400) K/uL MPV (7.4-10.4) fL Sodium (136-145) mmol/L Potassium (3.5-5.1) mmol/L Chloride (98-107) mmol/L Carbon Dioxide (21-32) mmol/L Anion Gap (3-11) BUN (7-18) mg/dl Creatinine (0.6-1.2) mg/dl Est Cr Clr Drug Dosing ml/min Est GFR ( Amer) Est GFR (Non-Af Amer) BUN/Creatinine Ratio (10-20) Glucose (70-99) mg/dl POC Glucose 79 88 (70-99) Calcium (8.5-10.1) mg/dl 10/21/18 10/21/18 10/21/18 Range/Units 09:03 08:37 08:21 WBC (4.8-10.8) K/uL RBC (4.2-5.4) M/uL Hgb (12.0-16.0) g/dL Hct (37-47) % MCV (80-100) fL MCH (25-34) pg MCHC (32-36) g/dL RDW Std Deviation (36.4-46.3) fL RDW Coeff of Yoav (11.5-14.5) % Plt Count (130-400) K/uL MPV (7.4-10.4) fL Sodium 138 (136-145) mmol/L Potassium 3.1 L D (3.5-5.1) mmol/L Chloride 105 (98-107) mmol/L Carbon Dioxide 28 (21-32) mmol/L Anion Gap 5.0 (3-11) BUN 6 L D (7-18) mg/dl Creatinine 0.54 L (0.6-1.2) mg/dl Est Cr Clr Drug Dosing 81.3 ml/min Est GFR ( Amer) 109.3 Est GFR (Non-Af Amer) 94.3 BUN/Creatinine Ratio 11.0 (10-20) Glucose 131 H (70-99) mg/dl POC Glucose 98 56 L* (70-99) Calcium 8.1 L (8.5-10.1) mg/dl 10/21/18 Range/Units 08:05 WBC (4.8-10.8) K/uL RBC (4.2-5.4) M/uL Hgb (12.0-16.0) g/dL Hct (37-47) % MCV (80-100) fL MCH (25-34) pg MCHC (32-36) g/dL RDW Std Deviation (36.4-46.3) fL RDW Coeff of Yoav (11.5-14.5) % Plt Count (130-400) K/uL MPV (7.4-10.4) fL Sodium (136-145) mmol/L Potassium (3.5-5.1) mmol/L Chloride (98-107) mmol/L Carbon Dioxide (21-32) mmol/L Anion Gap (3-11) BUN (7-18) mg/dl Creatinine (0.6-1.2) mg/dl Est Cr Clr Drug Dosing ml/min Est GFR ( Amer) Est GFR (Non-Af Amer) BUN/Creatinine Ratio (10-20) Glucose (70-99) mg/dl POC Glucose 53 L* (70-99) Calcium (8.5-10.1) mg/dl
[2018-10-22 07:18] LABS: BUN Creatinine Ratio 10.5 (10-20); Calcium 7.7 mg/dl (8.5-10.1); Creatinine Clr Calc Pharmacy 95.5 ml/min; Est GFR (African American) 115.2; Est GFR (Non-African American) 99.4; Potassium 3.4 mmol/L (3.5-5.1)
[2018-10-22] MEDS: SODIUM CHLORIDE 0.9% 1000ML 1,000 ML IV SCH ×2 (07:39→09:59)
[2018-10-22] MEDS: INSULIN ASPART 100 UNITS/ML 3 ML PEN SC SCH ×4 (08:53→21:38)
[2018-10-22] MEDS: LISINOPRIL 20 MG TAB PO SCH (08:53)
[2018-10-22] MEDS ORDERED: POTASSIUM CHLORIDE 10 MEQ TABCR PO STA (08:57)
--- NOTE | 2018-10-22 10:48 | Pharmacy Report ---
Pharmacy Glycemic Short Note 2 - Date of Service October 22, 2018 - Glycemic Short BSG Results (Last 24 hours): 10/21/18 10/21/18 10/21/18 12:17 17:07 20:32 Glucose POC Glucose 88 79 128 H 10/22/18 10/22/18 06:33 08:02 Glucose 68 L POC Glucose 79 ASSESSMENT: 10/22 * Patient only received 4 units of insulin yesterday, all of which were basal insulin * Patient had been started on clears yesterday/full diet but no carb intake documented at this time * Fasting BSG this AM at 68 mg/dL and POC 79 ml/dL - changed to regular T2DM diet * Appears to have eaten larger breakfast this morning, lunchtime BSG now 191 mg/dL - will add Lantus 5 units x 1, with scale on for tonight * Had tightened CR at lunchtime, but feel that as patient eats more will need more coverage, however don't want to be too aggressive on correctional insulin - change to CF of 30 and CR of 10 10/21 * Patient received 16 units of insulin yesterday, all of which was basal insulin * Hypoglycemic fasting this morning, 53, will loosen basal parameters, patient has been consuming limited carbs * POD 3, patient has advanced to full liquid diet, will continue stress of 2 carb ratio 10/20: * Patient received total of 34 units of insulin yesterday, of which were 22 units of basal insulin * Had received steroids day prior, therefore anticipate insulin requirements for today to be less * Fasting BSG this am at 122 mg/dL - will give ~25% of home AM dosing this morning (6 units) - patient remains NPO this AM * Patient started on clears this afternoon, lunchtime BSG at 89 mg/dL - will utilize stress 2 for novolog CR * Per nurse, patient seems to be tolerating clears at this time/denies any N/V - received tray later this afternoon * Will add scale for this evening for Lantus with reduced dosing. Had called nurse to confirm Lantus dosing with patient. Patient reports dosing listed on med rec however does admit to missing doses and adjusting her dose herself. DM educator note also confirms noncompliance. 10/19: * 73 year old female now s/p colon resection. Today POD 1 - continues NPO/ice chips * Patient received total of ~18 units of insulin yesterday, of which 14 units were basal ( only ~50% of home dose of basal given) * Fasting BSG this morning elevated at 235 mg/dL - likely related to steroids/insufficient basal coverage day prior * Will increase to Lantus 12 units this am (which is an additional 4 units more from home dose to make up basal dosing from yesterday and to help cover steroids). Will add Lantus scale on for this evening based upon BSG * Patient on Q6 hr checks / already covered with Novolog this morning, however will further tighten for lunchtime check PLAN FOR INPATIENT GLYCEMIC CONTROL: * Pt is maintained on oral antidiabetic agents as an outpatient * Oral agents are not recommended for inpatient use d/t drug interactions, changing PO intake, and difficulty titrating for acute hyper/hypoglycemia. ADA recommends re-initiating outpatient oral agents 1-2 days prior to discharge if/when appropriate if they were held on admission. * Will hold oral agents for admission and utilize SQ basal bolus insulin regimen which is the recommended regimen for inpatient glycemic control. * Basal insulin * Lantus 5 units x 1 with lunch * Lantus HS scale -For BSG < 180 - no Lantus -For BSG 180 or greater - 5 units (conservative with dosing due to recent hypoglycemia) * Bolus insulin * NovoLog per scale ACHS or Q6hrs while NPO * Goal Range: Low 110 mg/dL - High 140 mg/dL * Correction Factor: 30 mg/dL/unit * Nutritional / Prandial insulin per carb ratio of 1 unit per 10 grams CHO consumed
[2018-10-22] MEDS ORDERED: INSULIN GLARGINE SOLOSTAR 100 UNITS/ML 3 ML PEN SC ONE (13:30)
--- NOTE | 2018-10-22 17:19 | Hospitalist Progress Note ---
Date of Service October 22, 2018 Assessment & Plan (1) Tubulovillous adenoma of colon: POD #4 Right hemicolectomy - prox transverse colon resection by Dr. Peralta EBL 350ml Incisions healing well Pain/wound control per surgery Continue Bowel regimen Tolerating diet Had BMs Encourage to ambulate Hypokalemia: Replace as needed (2) Acute blood loss anemia: S/P 2 units PRBCs Hb:10.6 Lovenox discontinued Monitor CBC (3) Urinary retention: Patient with intermittent postop urinary retention Resolved Straight Cath PRN Bladder Scan PRN (4) T2DM (type 2 diabetes mellitus): A1c 8.3 as of 05/19/2018 Glycemic pharmacy is on board Continue to hold oral hypoglycemics (glimepiride and metformin) Continue Insulin therapy Monitor BGs (5) HTN (hypertension): Stable Continue Lisinopril Monitor (6) DVT prophylaxis: Encourage ambulation Lovenox discontinued secondary to anemia Disposition: As Per primary team Subjective Patient is seen and examined at bedside Doing much better today Abdominal pain is controlled Had bowel movement Tolerating diet Denies any chest pain, shortness of breath, dizziness Offers no other complaints Review of Systems Review of Systems: All systems reviewed & are unremarkable except as noted in HPI & below Physical Exam Physical Exam: Physical Exam: Vitals signs as noted above General Appearance:Moderately built and nourished, no apparent distress Head: normocephalic, Atraumatic Eyes: normal inspection, EOMI Neck: supple, Trachea midline Respiratory/Chest: Normal breath sounds, CTA Cardiovascular: S1, S2, No murmur Abdomen/GI:Soft, mild tender, +Surgical hoa, Bowel sounds present Extremities/Musculoskelatal:normal inspection, no edema Neurologic/Psych:AAOX3, grossly no focal neurological deficits Skin: normal color, warm Results & Data Vital Signs (Past 12 Hours) Vital Signs Temp Pulse Resp BP Pulse Ox 10/22/18 15:39 36.7 C 81 17 146/79 H 98 10/22/18 06:55 36.7 C 72 18 128/75 93 Laboratory Results Short CBC 10/22/18 Range/Units 06:33 WBC 7.35 (4.8-10.8) K/uL Hgb 10.6 L (12.0-16.0) g/dL Hct 30.2 L (37-47) % Plt Count 278 (130-400) K/uL [facility] 10/22/18 06:33 Sodium 139 Potassium 3.4 L Chloride 108 H Carbon Dioxide 27 BUN 5 L Creatinine 0.46 L Glucose 68 L Calcium 7.7 L
[2018-10-22] MEDS ORDERED: INSULIN GLARGINE SOLOSTAR 100 UNITS/ML 3 ML PEN SC SCH (21:00)
[2018-10-23] MEDS: ALUMINUM/MAGNESIUM SUSP 30 ML UDC PO SCH ×2 (00:01→05:54)
[2018-10-23] MEDS: SODIUM CHLORIDE 0.9% 1000ML 1,000 ML IV SCH (00:01)
[2018-10-23] MEDS: OXYCODONE/ACETAMINOPHEN 5mg/325mg TAB PO PRN ×2 (05:54→10:55)
[2018-10-23 07:32] LABS: Hematocrit (blood only) 28.9 % (37-47); Hemoglobin 9.9 g/dL (12.0-16.0)
[2018-10-23] MEDS: INSULIN ASPART 100 UNITS/ML 3 ML PEN SC SCH (08:43)
[2018-10-23] MEDS: LISINOPRIL 20 MG TAB PO SCH (08:45)
[2018-10-23] MEDS ORDERED: INSULIN GLARGINE SOLOSTAR 100 UNITS/ML 3 ML PEN SC ONE (09:00)
--- NOTE | 2018-10-23 09:41 | Surgery Progress Note ---
Date of Service October 23, 2018 Assessment & Plan (1) Tubulovillous adenoma of colon: pod 5 doing well ok for d/c instructions given Subjective feeling well. ruba diet. would like to go home Physical Exam Physical Exam: alert. nad abd: soft. expected tenderness. wounds look good. Results & Data Vital Signs (Past 12 Hours) Vital Signs Temp Pulse Pulse Resp BP Pulse Ox 10/23/18 07:43 36.7 C 56 L 16 138/82 95 10/22/18 23:00 36.8 C 77 16 116/71 95
--- NOTE | 2018-10-23 12:46 | Hospitalist Progress Note ---
Date of Service October 23, 2018 Assessment & Plan (1) Tubulovillous adenoma of colon: POD #5 Right hemicolectomy - prox transverse colon resection by Dr. Peralta EBL 350ml Surgical site healing well Pain/wound control per surgery Continue Bowel regimen Tolerating diet Had BMs Encourage to ambulate Plan to be discharged home today Hypokalemia: Resolved Replace as needed (2) Acute blood loss anemia: S/P 2 units PRBCs Hb:9.9 Lovenox discontinued Monitor CBC (3) Urinary retention: Patient with intermittent postop urinary retention Resolved Straight Cath PRN Bladder Scan PRN (4) T2DM (type 2 diabetes mellitus): A1c 8.3 as of 05/19/2018 Glycemic pharmacy is on board Continue to hold oral hypoglycemics (glimepiride and metformin) Continue Insulin therapy Monitor BGs (5) HTN (hypertension): Stable Continue Lisinopril Monitor (6) DVT prophylaxis: Encourage ambulation Lovenox discontinued secondary to anemia Disposition: As Per primary team Subjective Patient is seen and examined at bedside Doing well Plan to be discharge home today Abdominal pain is controlled + bowel movement Tolerating diet Denies any chest pain, shortness of breath, dizziness No new complaints Review of Systems Review of Systems: All systems reviewed & are unremarkable except as noted in HPI & below Physical Exam Physical Exam: Physical Exam: Vitals signs as noted above General Appearance:Moderately built and nourished, no apparent distress Head: normocephalic, Atraumatic Eyes: normal inspection, EOMI Neck: supple, Trachea midline Respiratory/Chest: Normal breath sounds, CTA Cardiovascular: S1, S2, No murmur Abdomen/GI:Soft, mild tender, +Surgical hoa, Bowel sounds present Extremities/Musculoskelatal:normal inspection, no edema Neurologic/Psych:AAOX3, grossly no focal neurological deficits Skin: normal color, warm Results & Data Vital Signs (Past 12 Hours) Vital Signs Temp Pulse Pulse Resp BP BP Pulse Ox 10/23/18 10:09 36.7 C 56 L 77 16 138/82 120/67 95 10/23/18 07:43 36.7 C 56 L 16 138/82 95 Laboratory Results Short CBC 10/23/18 Range/Units 07:14 Hgb 9.9 L (12.0-16.0) g/dL Hct 28.9 L (37-47) % BMP 10/23/18 07:14 Potassium 3.8
--- NOTE | 2018-10-25 09:33 | Discharge Summary ---
Date of Service October 25, 2018 Admission HPI Per Admitting Provider Patient presented to [facility] for elective laparoscopic assisted colectomy for tubulovillous adenoma found on colonoscopy. Principal Diagnosis Tubulovillous adenoma of colon Discharge Data Allergies Allergy/AdvReac Type Severity Reaction Status Date / Time No Known Allergies Allergy Verified 10/18/18 08:54 Consultations 10/19/18 23:00 Consult Medical [Consult Internal Medicine] Routine Procedures Performed Operation Date: 10/18/18 10:20 Actual Procedures s Attempted laparoscopic assisted partial colon resection(Not Applicable) - Yash Peralta MD p lysis of adhesion, right hemicolectomy, proximal transverse colon resection(Not Applicable) - Yash Peralta MD Hospital Course (1) Tubulovillous adenoma of colon: Patient was taken to operating room for laparoscopic assisted colectomy for tubulovillous adenoma. The area of concern was tatooed during colonoscopy so exact location of colon resection was to be determined in the operating room. The tattoo was present in the proximal transverse/ distal ascending colon. Patient had extensive adhesions in the right lower quadrant from prior appendectomy therefor procedure was somewhat complicated and prolonged. A right hemicolectomy and proximal transverse colectomy was performed. Patient tolerated procedure well and was transferred to recovery room and then to medical/surgical floor for postoperative care. She was kept NPO, NGT to LIS, IV Dilaudid [employer]EV[employer]IST as needed for pain, IV Zofran prn nausea, IV Fluids at 125 mls/hr, Lovenox SQ daily and SCDs for DVT prophylaxis, activity as tolerated, and incentive spirometry. POD # 1 vitals stable, afebrile, no return of bowel function. NGT output minimal. NGT was removed. Started on chips and sips. POD # 2 vitals stable, afebrile, hemoglobin dropped to 7.5. No return of bowel function yet. Diet advanced to clear liquids. Lovenox discontinued given drop in hemoglobin. Repeat hemoglobin at 1300 was 6.8. Vitals again stable and patient asymptomatic. Likely dilutional. 2 units of PRCs transfused with 20 mg of IV lasix in between. POD # 3 vitals stable, afebrile, hemoglobin 9.1 after 2 units, no flatus or bowel movement but peristalsis returned. Diet advanced to full liquids. POD # 4 passing flatus and bowel movement. Diet advanced to low fiber diet. POD # 5 , hemoglobin stable, tolerating diet, pain controlled. Discharged home on POD # 5 in stable condition. Total Time Total Time Spent Total Time Spent (In Minutes): 20 Total Time Includes: Examination of the Patient, Discharge Planning and Medication Reconciliation Discharge Plan Discharge Items Patient Disposition: Home - Self-Care Reason For Visit: Villous Adenoma Discharge Diagnosis: same Discharge Goals: Decrease discomfort and Improve function Activity: Per 'Additional Instructions' section Non-emergency contact: Surgeon Call non-emergency contact if: your pain is not controlled, your pain is worsening, your pain is concerning for you, you have a fever, your temperature is above 101, your wound has increased redness, your wound has increased drainage and your wound pain has increased Follow-up/Referrals: Zeus Singh MD [Primary Care Provider] - Diet: Low Fiber Addtl Provider Instructions: Post-Surgical ~Discharge Instructions Activity Recommendations: - lifting limitation: (10 pounds for 6 weeks), - exercise/sex/sports limit: (nonstrenuous for at least 6 weeks), - driving or machine use limit: (none for 1 week), - Shower/bathe limit: you may shower, gently clean incisions with soap and water, pat dry Diet: - Low fiber diet for next few weeks SPECIAL CARE INSTRUCTIONS: - May shower. Let water run over area and pat dry. - Surgical hoa will be removed in office. - Call the surgeon's office with any questions or concerns - - (ex. temperature higher than 101 degrees F, excessive bleeding or pain). MEDICATIONS: - Resume previous medications unless instructed otherwise by your surgeon. - Ibuprofen 600 mg every 6 hours with food - Percocet 1 every 4 hours, as needed for pain FOLLOW UP VISIT: - If not already scheduled, please call the office to schedule a one week follow-up appointment. Office number Prescriptions: New oxycodone-acetaminophen [Percocet] 5-325 mg Tablet 1 tab PO Q4H PRN (Reason: pain) Qty: 18 RF: 0 Continued Lantus U-100 Insulin 100 unit/mL Solution 18 unit SUBCUT HS RF: 0 Lantus U-100 Insulin 100 unit/mL Solution 8 unit SUBCUT QAM RF: 0 metformin 1,000 mg Tablet 1,000 mg PO BID RF: 0 glimepiride 4 mg Tablet 4 mg PO BID RF: 0 rosuvastatin [Crestor] 40 mg Tablet 40 mg PO QPM RF: 0 calcium carbonate-vitamin D3 [Calcium 500 + D] 500 mg(1,250mg) -200 unit Tablet 1 tab PO QAM RF: 0 cholecalciferol (vitamin D3) [Vitamin D3] 5,000 unit Tablet 5,000 unit PO QAM RF: 0 lisinopril 20 mg Tablet 20 mg PO DAILY RF: 0 Discontinued hydrocodone-acetaminophen 5-325 mg Tablet 1 tab PO Q6H PRN (Reason: Pain) RF: 0 Stand-Alone Forms: [facility], [facility]/Other Patient Handouts: Surgery Open Colon Discharge Orders: Discharge Order (Routine); Ordered 10/23/18 Ordered By: Nicola Meng Admission Data Admit Date/Time: 10/18/18 18:56 Attending Provider: Yash Peralta Admit Provider: Yash Peralta Primary Care Provider: Zeus Singh Other Providers: Gary Hung ; Silverio Naidu Service: Surgical Services Other Interventions: Discharge Summary Assessment (RN) Last Done: 10/23/18 10:09 Pending Studies at Discharge: Yes (pathology will be reviewed at follow-up visit) DC Date/Time DO NOT enter until pt leaves facility: 10/23/18 11:27
--- NOTE | 2018-10-26 14:15 | Coding Query ---
PATHOLOGY To promote full compliance with coding requirements relating to patient care, physician participation is requested in all cases of lumber salvager uncertainty. Please assist us with the question(s) below: Please review the Pathology report and please document any relevant diagnosis(es) below: Diagnosis(es): Adenocarcinoma of the colon Serrated polyps of colon Thank you Jessica INFANTE
== END 2018-10-23 11:27 | disposition home or self-care (01) | DRG 330 ==
LOC: ASU 08:01 → 3N 18:56